=== PATIENT | female | born 1970 | race Caucasian/White ===

== ENCOUNTER 2017-09-08 15:50 | Emergency (ER) | payer OTHER ==
[~2017-09-08] VITALS: Ht 165.1 cm; Wt 69.7 kg
[~2017-09-08 15:50] MED LIST: CITA40TA4 PO; IBUP-1428 PO; TIZA4CAP PO
[2017-09-08 16:12] VITALS: Ht 165.1 cm; Wt 69.7 kg
--- NOTE | 2017-09-08 16:38 | DIAGNOSTIC IMAGING REPORT ---
L FINGER(S) MIN 2 VIEWS ROUTINE CLINICAL HISTORY: L 3rd digit dog bite, distal, pain and discoloration trauma. Pain. COMPARISON: None. DISCUSSION: The bones and joint spaces appear intact. There is no evidence of fracture, dislocation or bony disease. There is no evidence for soft tissue swelling. IMPRESSION: Negative study. The above report was generated using voice recognition software. It may contain grammatical, syntax or spelling errors. Electronically signed by: Erasmo Majano M.D. 09/08/2017 4:37 PM Dictated Date/Time: 09/08/2017 4:36 PM
[2017-09-08] MEDS ORDERED: DOXY-300 PO (16:48)
[2017-09-08] MEDS ORDERED: METR500T PO (16:48)
--- NOTE | 2017-09-08 16:49 | EMERGENCY ROOM VISIT NOTE ---
ED Visit Note First contact with patient: 16:14 Chief Complaint: "Dog Bite" History of Present Illness: This patient is a 46 year old female who presents to the Emergency Department via private vehicle for evaluation of their L 3rd digit dog bite puncture wound. 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 They report a moderate amount of bleeding initially. They deny any numbness or tingling into the distal extremity. They report no decreased range of motion of the affected digit. They have tried ibuprofen for the pain with relief of their symptoms. Patient rates her current discomfort as a 4/10. Patient's Tetanus status is believed to be currently up-to-date. Dog's rabies series are believed to be up to date. Medications: as noted below Allergies: Penicillins PMH: No pertinent SHx: Pt. lives and works locally ROS: All pertinent positive and negative review of systems are appropriately documented in the History of Present Illness. Physical Exam: VITAL SIGNS - Vital signs and nursing notes were reviewed. Stable. GENERAL -46-year-old female appearing her stated age who is in no acute distress. Communicates well with provider and answers questions appropriately. SKIN - There is a small punctate wound noted on the finger pad of the distal L third digit. The edges do not gate apart with traction. No foreign bodies appreciated. Upon further examination there are no deep structures including vessel, tendon, or bony structures appreciated. There is no active bleeding noted. Minimal edema/erythema of this region. No evidence of infection at this time. Good capillary refill distal to the puncture wound. MUSCULOSKELETAL - Puncture wound as described above. +5/5 strength appreciated of the affected digit. Full range of motion of the affected digit. NEUROLOGIC - Spinothalamic tract was found to be intact with ability to discriminate sharp versus dull sensation. No sensory defects of the dorsal column were appreciated utilizing light touch for evaluation. VASCULAR - Capillary refill was brisk. IMAGING: L FINGER(S) MIN 2 VIEWS ROUTINE CLINICAL HISTORY: L 3rd digit dog bite, distal, pain and discoloration trauma. Pain. COMPARISON: None. DISCUSSION: The bones and joint spaces appear intact. There is no evidence of fracture, dislocation or bony disease. There is no evidence for soft tissue swelling. IMPRESSION: Negative study. The above report was generated using voice recognition software. It may contain grammatical, syntax or spelling errors. Electronically signed by: Erasmo Majano M.D. 09/08/2017 4:37 PM Dictated Date/Time: 09/08/2017 4:36 PM ED Course: Patient was seen and evaluated by myself. Risks and benefits of performing primary wound closure versus no repair were discussed with the patient who verbalizes understanding. Verbal consent was obtained prior to performing the procedure. The wound was copiously irrigated with normal saline and Betadine. Patient tolerated the procedure well. No complications were met. The wound was cleansed and dressed with a Bacitracin dressing. She has an allergy to penicillin therefore will be given doxycycline and Flagyl. She is to follow with the approve Worker's Compensation individual. She was informed upon the risk of infection. Patient educated on worrisome symptoms for return visit to the Emergency Department. Patient discharged to home in good condition. In the evaluation and treatment of this patient, the following differential diagnoses were considered: Finger Fracture, Finger Dislocation, Finger Sprain, Finger Contusion, [place] Finger, or Mallet Finger. Problem List Medical Problems: (1) Otitis media Status: Resolved Current/Historical Medications Scheduled Citalopram (Citalopram Hydrobromide), 40 MG PO QAM Doxycycline (Monohydrate) (Doxycycline), 100 MG PO BID Ibuprofen (Motrin), 800 MG PO TID Metronidazole (Flagyl), 500 MG PO TID Scheduled PRN Tizanidine (Zanaflex), 4 MG PO BID PRN for Muscle Spasms Allergies Coded Allergies: Penicillins (Verified Allergy, Unknown, 09/08/17) Vital Signs Date Time Temp Pulse Resp B/P (MAP) Pulse Ox O2 Delivery O2 Flow Rate FiO2 09/08/17 17:01 36.4 60 18 122/85 98 09/08/17 16:12 36.4 60 18 122/85 98 Room Air Departure Information Impression Primary Impression: Bite by animal Dispostion Home / Self-Care Condition GOOD Prescriptions Metronidazole (FLAGYL) 500 Mg Tab 500 MG PO TID for 10 Days, #30 TAB Prov: Artur Lopez PA-C 09/08/17 Doxycycline (Monohydrate) (Doxycycline) 100 Mg Cap 100 MG PO BID for 10 Days, #20 TABS Prov: Artur Lopez PA-C 09/08/17 Referrals No Doctor, Assigned (PCP) Patient Instructions [facility] Additional Instructions Discharge Instructions: You were seen in the emergency department for a dog bite to your finger. X-ray shows no fracture or retained piece of tooth. We do recommend beginning antibiotic to prevent infection. (Doxycycline and Flagyl) You have been prescribed Doxycycline to be taken as prescribed. 1 tablet every 12 hours. this is an antibiotic. All antibiotics have the potential to cause diarrhea. Stop this medication and contact a medical provider if you were to develop any significant adverse side effects including: wheezing, shortness of breath, passing out, vomiting, or a diffuse rash. Always take antibiotics as directed and COMPLETE the ENTIRE course regardless of the improvement of your symptoms. Protect yourself with sunscreen while on this antibiotic as it increases your skin's sensitivity to the light and cause bad sunburns. In addition, you should be sure to take this pill after eating. Make sure the pill is completely swallowed as this medication can cause irritation to the lining of the esophagus. Do NOT drink milk or eat anything with large amounts of Calcium in them 1 hour prior to taking this medication as this will decrease the effectiveness of the medication. The other is Flagyl. 1 tablet every 8 hours. Please do not drink alcohol with this as it will make you very ill. Proper wound care is essential for adequate wound healing and infection prevention. You can shower and clean the wound with soap and water. Do not scour over the wound, pat dry with a towel. Look for signs of infection of the wound including: increased pain, swelling, foul discharge, streaking, or increased temperature. If any of these are noticed you should return to the Emergency Department for further assessment and treatment. As with any laceration you may have received nerve damage to the surrounding tissues. This damage may or may not be permanent. You should keep the area covered with sunscreen for the first 6 months to 1 year when at risk for exposure to help minimize scarring. You can also use scar reducing creams or Vitamin E oil to help minimize scarring. For pain control, you can use the following [id number] medicines (if >12 yo): - Regular strength (325mg/tab) Tylenol (acetaminophen) 2 tabs every 4-6 hours as needed. Do not exceed 12 tablets in a 24 hour period. Avoid taking more than 3 grams (3000 mg) of Tylenol per day. This includes any other sources of acetaminophen you may take on a regular basis. - Regular strength (200 mg/tab) Advil (ibuprofen) 1-2 tabs every 4-6 hours as needed. Do not exceed a dose of 3200 mg per day. Return to the emergency department if your symptoms worsen despite treatment course outlined above.
[2017-09-08 17:01] VITALS: BP 122/85; PULSE 60; TEMP 36.4; O2SAT 98
== END 2017-09-08 17:02 | disposition home or self-care (01) ==
LOC: C.EDB 15:52 → C.EDD 17:02
DX: S61.253A Open bite of left middle finger without damage to nail, initial encounter (principal); W54.0XXA Bitten by dog, initial encounter; Y93.K3 Activity, grooming and shearing an animal; Y99.0 Civilian activity done for income or pay; Z86.69 Personal history of other diseases of the nervous system and sense organs; Z88.0 Allergy status to penicillin

== ENCOUNTER 2019-07-25 16:38 | Inpatient (IN) ==
[2019-07-25 17:05] LABS: Basophils # (auto) 0.03 K/uL (0-0.2); Basophils % (auto) 0.4 %; Eosinophils # (auto) 0.02 K/uL (0-0.5); Eosinophils % (auto) 0.3 %; Hematocrit (blood only) 41.3 % (37-47); Hemoglobin 14.5 g/dL (12.0-16.0); Immature Granulocytes # (auto) 0.01 K/uL (0.00-0.02); Immature Granulocytes % (auto) 0.1 %; Lymphocytes # (auto) 3.57 K/uL (1.2-3.4); Lymphocytes % (auto) 44.7 %; Mean Corpuscular Hemoglobin 32.2 pg (25-34); Mean Corpuscular Hgb Conc 35.1 g/dL (32-36); Mean Corpuscular Volume 91.6 fL (80-100); Mean Platelet Volume 9.8 fL (7.4-10.4); Monocytes # (auto) 0.48 K/uL (0.11-0.59); Neutrophils # (auto) 3.87 K/uL (1.4-6.5); Neutrophils % (auto) 48.5 %; Platelet Count 263 K/uL (130-400); RDW Coefficient of Variation 11.9 % (11.5-14.5); RDW Standard Deviation 40.2 fL (36.4-46.3); Red Blood Count 4.51 M/uL (4.2-5.4); White Blood Count 7.98 K/uL (4.8-10.8)
[2019-07-25 17:23] LABS: Alanine Aminotransferase 17 U/L (12-78); Albumin Level 3.8 gm/dl (3.4-5.0); Aspartate Aminotransferase 16 U/L (15-37); BUN Creatinine Ratio 17.8 (10-20); Blood Urea Nitrogen 15 mg/dl (7-18); Calcium 9.4 mg/dl (8.5-10.1); Carbon Dioxide 27 mmol/L (21-32); Chloride 105 mmol/L (98-107); Est GFR (African American) 92.6; Est GFR (Non-African American) 79.9; Glucose 102 mg/dl (70-99); Lipase 115 U/L (73-393); Potassium 3.8 mmol/L (3.5-5.1); Sodium 137 mmol/L (136-145)
[2019-07-25 17:28] LABS: Alkaline Phosphatase 94 U/L (45-117); Bilirubin,Total 0.4 mg/dl (0.2-1); Globulin 3.7 gm/dl (2.5-4.0); Total Protein 7.5 gm/dl (6.4-8.2); Troponin I < 0.015 ng/ml (0-0.045)
--- NOTE | 2019-07-25 17:35 | XRay Report ---
XR chest 1V portable HISTORY: 48 years-old Female Chest Pain acute atypical chest pain COMPARISON: Chest radiograph 08/06/2014 TECHNIQUE: Portable AP view of the chest FINDINGS: Cardiomediastinal and hilar silhouettes are within normal limits. No pneumothorax, pleural effusion, focal airspace consolidation or overt pulmonary edema. Bones of the chest appear grossly intact. 3 mm ossification projects superior to the right glenoid. IMPRESSION: No acute process. ACT 112: Negative or not required by law. The above report was generated using voice recognition software. It may contain grammatical, syntax o r spelling errors. Electronically signed by: Niall Malloy M.D. 07/25/2019 5:34 PM
[2019-07-25 17:42] LABS: D Dimer < 190 ug/L FEU (0-500)
--- NOTE | 2019-07-25 18:17 | Emergency Department Note ---
History of Present Illness General Chief complaint: Chest Pain Stated complaint: CHEST PAIN Time Seen by Provider: 07/25/19 17:04 History of Present Illness Maximum Pain Intensity: 3 Patient is a 48-year-old female with past medical history significant for anxiety who presents the emergency department for evaluation of chest pain. She has had symptoms x2 days. She states that she has been nauseous for 2 weeks. Thursday, 2 days ago she developed discomfort in her left upper chest. She uses multiple different words to describe it including sharp, dull and pressure. Yesterday the pain persisted. She also developed palpitations. Chest pain worsened yesterday, she states that at its worst she would have rated it a 7/10 yesterday. Currently she rates it a 3/10 and describes it as a pressure like "something is sitting on my chest." She did take ibuprofen yesterday when she h ad a headache. She also notes feeling a little bit short of breath with exertion sweaty, and having increased pain with exertion. She was seen at the [facility] office today where the provider did an EKG and referred her to the emergency department. Patient takes Paxil for anxiety. She is a lifelong smoker, smoking half a pack a day for 32 years. She denies a history of hypertension or heart disease, she had a prior cardiac work-up that was felt to be musculoskeletal. She has been told that she has high cholesterol in the past. Her mother had an WA at age 49. She denies any headache or near syncope. No abdominal pain, nausea or vomiting. She is postmenopausal times several years. Home Medications Home Medications Medication Instructions Recorded Confirmed Type [id number]-[id number] 1 tab PO DAILY 07/25/19 07/25/19 History [Women's One Daily] paroxetine HCl 37.5 mg PO DAILY 07/25/19 07/25/19 History Allergies Allergy/AdvReac Type Severity Reaction Status Date / Time Penicillins Allergy Unknown Unknown Verified 07/25/19 18:27 prednisone AdvReac Unknown Sleepiness Verified 07/25/19 18:27 Past Med/Surg History Medical History Anxiety (Chronic) Cervical radiculitis (Resolved) Hyperlipidemia (Chronic) Surgical History No pertinent past surgical history Social History Preferred Language: [place] Feels Safe at Home: Yes Smoking Status: Current every day smoker Review of Systems A total of 10 systems reviewed and were otherwise negative Physical Exam Vital Signs Vital Signs - 24 hr 07/25/19 16:40 07/25/19 16:52 07/25/19 16:56 Temperature 36.9 C Temperature Source Oral Pulse Rate 70 68 63 Respiratory Rate 18 12 11 L Respiratory Effort / Characteristics Non-Labored Respiratory Depth Normal Blood Pressure 132/84 126/82 Blood Pressure Mean 100 95 Pulse Oximetry 98 97 Oxygen Delivery Method Room Air Room Air Sepsis Recent Fever Within 48 Hours No Sepsis Action Taken by Nursing No Action Required 07/25/19 17:00 07/25/19 17:01 07/25/19 17:30 Temperature Temperature Source Pulse Rate 64 63 61 Respiratory Rate 13 18 18 Respiratory Effort / Characteristics Respiratory Depth Blood Pressure 125/74 111/71 Blood Pressure Mean 87 75 Pulse Oximetry Oxygen Delivery Method Sepsis Recent Fever Within 48 Hours Sepsis Action Taken by Nursing 07/25/19 19:18 Temperature Temperature Source Pulse Rate 58 L Respiratory Rate Respiratory Effort / Characteristics Respiratory Depth Blood Pressure 131/80 Blood Pressure Mean 97 Pulse Oximetry Oxygen Delivery Method Sepsis Recent Fever Within 48 Hours Sepsis Action Taken by Nursing CONSTITUTIONAL: Patient is a well-appearing 48-year-old female who is awake and alert and in no acute distress. EYES: Pupils equal, round, reactive to light and accommodation. EOMs intact without nystagmus. Sclera are anicteric. ENT: Tympanic membranes intact, with normal landmarks. External canals are clear. Oral and nasopharynx are clear. Mucous membranes are moist, no lesions, tongue and gums appear normal. NECK: No bruits auscultated. Supple without lymphadenopathy. No thyromegaly. No meningeal signs. Full active range of motion without discomfort. CARDIOVASCULAR: Regular rate and rhythm, with normal S1 and S2, no murmur or gallop or rub is heard. No carotid bruits auscultated. No JVD. Peripheral pulses easily palpable. RESPIRATORY: Breath sounds equal and clear to auscultation without wheezes, rales, or rhonchi heard. Full and equal chest expansion without accessory muscle use or retractions. There is no reproducible chest discomfort to palpation over the sternum or the costochondral area. ABDOMEN: Bowel sounds. Abdomen is soft, nontender nondistended. No guarding or rebound. INTEGUMENTARY: No lesions or rash, normal skin turgor. LYMPH: No lymphadenopathy. Course Course The patient was seen and assessed as above. Old records were reviewed. She presents to the emergency department for evaluation of waxing and waning chest discomfort x2 days. She has never been pain-free. She was seen at the [facility] office earlier today and referred to the ED for further work-up. She was offered but declined medication for discomfort. IV lock was initiated and laboratory studies were collected. EKG was performed and was as noted below with no evidence for acute ischemic changes. CBC with differential, CMP, lipase, troponin, d-dimer and TSH were obtained. Chest x-ray was performed. Laboratory studies noted a normal white count at 7900. No left shift or bandemia. No anemia. Electrolytes are within normal limits. Renal functions are normal. Transaminases are not elevated. TSH is indicative of a euthyroid state. Troponin is negative x1, d-dimer is within normal limits. Given normal d-dimer and lack of PE risk factors, further work-up for PE was not pursued. Laboratory and diagnostic imaging studies were discussed with the patient and re viewed with attending physician, Dr. Pickett. The patient has a HEART score of 4, moderate risk. Given this it was felt that she would benefit from admission/observation for further cardiac work-up. This was discussed with the patient and she was agreeable. [facility] Patient was reviewed with Dr. Rodriegz. Medical Decision Making Differential Diagnosis Differential diagnosis includes acute myocardial infarction, acute coronary syndrome, myocarditis, pericarditis, pericardial effusions /tamponade, pulmonary embolism, pneumonia, pneumothorax, cardiomyopathy, congestive heart failure, anemia, COPD/asthma exacerbation, musculoskeletal, anxiety, costochondritis, among others. Medical Records Attestation: I reviewed the patient's medical records. Home Medications Current Medication List: was personally reviewed by me Laboratory Data Attestation: I reviewed the patient's lab results. Result diagrams: 07/25/19 16:55 07/25/19 16:55 Lab Results 07/25/19 07/25/19 07/25/19 Range/Units 16:55 16:55 16:55 WBC 7.98 (4.8-10.8) K/uL RBC 4.51 (4.2-5.4) M/uL Hgb 14.5 (12.0-16.0) g/dL Hct 41.3 (37-47) % MCV 91.6 (80-100) fL MCH 32.2 (25-34) pg MCHC 35.1 (32-36) g/dL RDW Std Deviation 40.2 (36.4-46.3) fL RDW Coeff of [place] 11.9 (11.5-14.5) % Plt Count 263 (130-400) K/uL MPV 9.8 (7.4-10.4) fL Immature Gran % (Auto) 0.1 % Neut % (Auto) 48.5 % Lymph % (Auto) 44.7 % [place] % (Auto) 6.0 % Eos % (Auto) 0.3 % Baso % (Auto) 0.4 % Immature Gran # (Auto) 0.01 (0.00-0.02) K/uL Neut # (Auto) 3.87 (1.4-6.5) K/uL Lymph # (Auto) 3.57 H (1.2-3.4) K/uL [place] # (Auto) 0.48 (0.11-0.59) K/uL Eos # (Auto) 0.02 (0-0.5) K/uL Baso # (Auto) 0.03 (0-0.2) K/uL D-Dimer < 190 (0-500) ug/L FEU Sodium 137 (136-145) mmol/L Potassium 3.8 (3.5-5.1) mmol/L Chloride 105 (98-107) mmol/L Carbon Dioxide 27 (21-32) mmol/L Anion Gap 6.0 (3-11) BUN 15 (7-18) mg/dl Creatinine 0.85 (0.6-1.2) mg/dl Est Cr Clr Drug Dosing Not Reportable Est GFR ( Amer) 92.6 Est GFR (Non-Af Amer) 79.9 BUN/Creatinine Ratio 17.8 (10-20) Glucose 102 H (70-99) mg/dl Calcium 9.4 (8.5-10.1) mg/dl Total Bilirubin 0.4 (0.2-1) mg/dl AST 16 (15-37) U/L ALT 17 (12-78) U/L Alkaline Phosphatase 94 (45-117) U/L Troponin I < 0.015 (0-0.045) ng/ml Total Protein 7.5 (6.4-8.2) gm/dl Albumin 3.8 (3.4-5.0) gm/dl Globulin 3.7 (2.5-4.0) gm/dl Albumin/Globulin Ratio 1.0 (0.9-2) Lipase 115 (73-393) U/L TSH (0.300-4.500) uIu/ml 07/25/19 Range/Units 16:55 WBC (4.8-10.8) K/uL RBC (4.2-5.4) M/uL Hgb (12.0-16.0) g/dL Hct (37-47) % MCV (80-100) fL MCH (25-34) pg MCHC (32-36) g/dL RDW Std Deviation (36.4-46.3) fL RDW Coeff of [place] (11.5-14.5) % Plt Count (130-400) K/uL MPV (7.4-10.4) fL Immature Gran % (Auto) % Neut % (Auto) % Lymph % (Auto) % [place] % (Auto) % Eos % (Auto) % Baso % (Auto) % Immature Gran # (Auto) (0.00-0.02) K/uL Neut # (Auto) (1.4-6.5) K/uL Lymph # (Auto) (1.2-3.4) K/uL [place] # (Auto) (0.11-0.59) K/uL Eos # (Auto) (0-0.5) K/uL Baso # (Auto) (0-0.2) K/uL D-Dimer (0-500) ug/L FEU Sodium (136-145) mmol/L Potassium (3.5-5.1) mmol/L Chloride (98-107) mmol/L Carbon Dioxide (21-32) mmol/L Anion Gap (3-11) BUN (7-18) mg/dl Creatinine (0.6-1.2) mg/dl Est Cr Clr Drug Dosing Est GFR ( Amer) Est GFR (Non-Af Amer) BUN/Creatinine Ratio (10-20) Glucose (70-99) mg/dl Calcium (8.5-10.1) mg/dl Total Bilirubin (0.2-1) mg/dl AST (15-37) U/L ALT (12-78) U/L Alkaline Phosphatase (45-117) U/L Troponin I (0-0.045) ng/ml Total Protein (6.4-8.2) gm/dl Albumin (3.4-5.0) gm/dl Globulin (2.5-4.0) gm/dl Albumin/Globulin Ratio (0.9-2) Lipase (73-393) U/L TSH 1.640 (0.300-4.500) uIu/ml Imaging Data Attestation: I personally reviewed and interpreted this imaging study as follows: Radiologist's Impression: XR chest 1V portable HISTORY: 48 years-old Female Chest Pain acute atypical chest pain COMPARISON: Chest radiograph 08/06/2014 TECHNIQUE: Portable AP view of the chest FINDINGS: Cardiomediastinal and hilar silhouettes are within normal limits. No pneumothorax, pleural effusion, focal airspace consolidation or overt pulmonary edema. Bones of the chest appear grossly intact. 3 mm ossification projects superior to the right glenoid. IMPRESSION: No acute process. ECG Data Attestation: I personally reviewed and interpreted this ECG as follows: Indication: + chest pain and + palpitations Rate (beats per minute): 64 Rhythm: + normal sinus ECG Constantine: + Normal ECG ST segments: + Normal ST segments Comparison ECG Date: from (2014) Change: the following changes noted (ST and T wave abnormality is resolved.) Blood Pressure Blood Pressure Findings: Normal blood pressure Blood Pressure Disposition: did not require urgent referral MDM Narrative See ED Course. Impression & Plan Precordial chest pain, Palpitations Discharge Plan Visit Data *Final* Discharge Date/Time: 07/25/19 20:40 Chief Complaint: Chest Pain Stated Complaint: CHEST PAIN ED Provider: Selvin Pickett ED Midlevel Provider: Fernandez Garcia Discharge Problem: Precordial chest pain, Palpitations Patient Disposition: Admitted As Inpatient Discharge Instructions Interventions: ED Discharge Assessment Last Done: 07/25/19 20:40 Risk - HEART Scoring HEART Score for Major Cardiac Events History: Moderately Suspicious EKG: Normal Age: 45-64 Years of Age Risk Factors: >2 Risk Factors Initial Troponin: Normal Limit Total Points: 4 Risk Level: Moderate Risk for Major Adverse Cardiac Event HEART Score Interpretation: Score interpretation (as per derivation study): HEART Adverse Cardiac Score Event Risk Management 0-3 0.9-1.7% In the HEART Score study, these patients were discharged. 4-6 12-16.6% In the HEART Score study, these patients were admitted to the hospital. 7-10 50-65% In the HEART Score study, these patients were candidates for early invasive measurements. Original Source: 1. Darshan AJ, John BE, Eh NIRAV. Chest pain in the emergency room: value of the HEART score. Neth Heart J. 2008; 16(6):191-6.
[2019-07-25] MEDS ORDERED: ACETAMINOPHEN 325 MG TAB PO PRN (21:08)
[2019-07-25] MEDS ORDERED: ONDANSETRON INJ 2 MG/ML 2 ML VIAL IV PRN (21:08)
[2019-07-25] MEDS ORDERED: NITROGLYCERIN SL 0.4 MG/TAB TAB SL PRN (21:08)
--- NOTE | 2019-07-25 22:59 | History and Physical Report ---
DATE OF ADMISSION: 07/25/2019 CHIEF COMPLAINT: Chest pain. HISTORY OF PRESENT ILLNESS: This is a 48-year-old female with past medical history significant for allergic rhinitis, history of tobacco use disorder, history of depression, history of condyloma acuminatum, who lives with his son. Smokes half pack a day for last about 32 years. Presents with chest pain. The patient states since last weekend she noticed retrosternal chest pain, no radiation. Yesterday, it was 7/10 in severity, dull aching pain, but today it was about 3/10 in severity. She says the pain is more when she is anxious or when she is exerting and relieves with rest. She moved to a new house in December, there are a lot of stairs and climbing the stairs is making her short of breath. Also she has chronic dizziness. She was a little nauseous earlier today. She states she easily sweats with the heat. Denies any fever, chills. No cough, no headache. Her vision is not great and she follows with eye doctor. No earaches, no runny nose, no sore throat. Appetite is okay. No dysphagia, no odynophagia. No diarrhea, no constipation, no blood in stools or black stools. No burning micturition, no hematuria. No swelling in the legs, no rash, no easy bruising or easy bleeding. Sleeps okay. ALLERGIES: PENICILLINS, PREDNISONE. PAST MEDICAL HISTORY: As mentioned above. PAST SURGICAL HISTORY: Injection of the cervical spine, ligation of oviducts, Pap screen, tonsillectomy, vaginal delivery. MEDICATIONS: The patient is on multivitamins, paroxetine 37.5 mg p.o. daily, Benadryl p.r.n. FAMILY HISTORY: Significant for mother has alcoholism, smoking disorder, smoking and she had KS at the age of 49 and bypass surgery. Mother also has hypertension, anxiety. Father has anxiety. Sister has thyroid disorder. Brother has allergies. SOCIAL HISTORY: Lives with her son. Smokes half pack a day for last 30+ years. Alcohol very rarely. No drug use. REVIEW OF SYSTEMS: As per HPI. Rest of the review of systems negative. PHYSICAL EXAMINATION: GENERAL: The patient is of moderate build, not in acute distress. VITAL SIGNS: Temperature 36.9, pulse 50, respiratory rate 18, blood pressure 131/80, oxygen 97% on room air. HEENT: No pallor, no icterus. Pupils equal, round, and reactive to light. NECK: No JVD, no neck masses, no carotid bruits. CARDIOVASCULAR: S1, S2 heard, regular rate and rhythm, no murmur, no gallop. RESPIRATORY SYSTEM: Normal AP diameter. No accessory muscle use. No wheezing, no crackles. ABDOMEN: Soft, bowel sounds present. Nontender. No distention. CENTRAL NERVOUS SYSTEM: Cranial nerves II-XII grossly intact. Nonfocal. EXTREMITIES: No edema, no erythema. LABORATORY DATA: WBC 7.9, hemoglobin 14.5, hematocrit 41.3, platelets 263. D-dimer less than 190. Sodium 137, potassium 3.8, chloride 105, bicarbonate 27, BUN 15, creatinine 0.8, serum glucose 102, calcium 9.4, total bilirubin 0.4, AST 16, ALT 17, alkaline phosphatase 94. Troponin I less than 0.015. Lipase 115. TSH 1.6. IMAGING DATA: Chest x-ray, no acute process. EKG: Normal sinus rhythm with rate of 64, no acute ST changes seen. ASSESSMENT AND PLAN: This is a 48-year-old female who presents with chest pain. 1. Chest pain, rule out acute coronary syndrome. Initial workup is negative. Risk factor of age, smoking history, and family history. We will observe in tele floor. Serial cardiac enzymes, echocardiogram. N.p.o. after midnight. Consult cardiology for possible stress test in the a.m. if the further workup is negative. 2. History of depression. Continue paroxetine. 3. Tobacco use disorder. Needs counseling. 4. Deep venous thrombosis prophylaxis, sequential compression devices. 5. Disposition: Observation in tele floor. Expect to discharge home and follow with family doctor. Level 1 full code. MTDD
[2019-07-26 05:32] LABS: Basophils # (auto) 0.04 K/uL (0-0.2); Basophils % (auto) 0.4 %; Eosinophils # (auto) 0.09 K/uL (0-0.5); Hematocrit (blood only) 39.6 % (37-47); Hemoglobin 14.4 g/dL (12.0-16.0); Immature Granulocytes # (auto) 0.01 K/uL (0.00-0.02); Immature Granulocytes % (auto) 0.1 %; Lymphocytes % (auto) 34.4 %; Mean Corpuscular Hemoglobin 32.8 pg (25-34); Mean Corpuscular Hgb Conc 36.4 g/dL (32-36); Mean Corpuscular Volume 90.2 fL (80-100); Mean Platelet Volume 9.4 fL (7.4-10.4); Monocytes # (auto) 0.56 K/uL (0.11-0.59); Monocytes % (auto) 6.2 %; Neutrophils # (auto) 5.21 K/uL (1.4-6.5); Neutrophils % (auto) 57.9 %; Platelet Count 258 K/uL (130-400); RDW Standard Deviation 39.7 fL (36.4-46.3); Red Blood Count 4.39 M/uL (4.2-5.4); White Blood Count 9.01 K/uL (4.8-10.8)
[2019-07-26 06:07] LABS: BUN Creatinine Ratio 22.9 (10-20); Blood Urea Nitrogen 19 mg/dl (7-18); Calcium 9.1 mg/dl (8.5-10.1); Carbon Dioxide 29 mmol/L (21-32); Chloride 109 mmol/L (98-107); Creatinine Clr Calc Pharmacy 72.1 ml/min; Est GFR (African American) 93.9; Glucose 92 mg/dl (70-99); Magnesium 2.2 mg/dl (1.8-2.4); Potassium 4.2 mmol/L (3.5-5.1); Sodium 143 mmol/L (136-145)
[2019-07-26 06:12] LABS: Troponin I < 0.015 ng/ml (0-0.045)
[2019-07-26] MEDS: MULTIVITAMIN TAB PO SCH (08:49)
[2019-07-26] MEDS: ASPIRIN 81 MG ECTAB PO SCH (08:49)
[2019-07-26] MEDS: PARoxetine HCl CONTROLLED REL 12.5 MG TABCR PO SCH (08:49)
--- NOTE | 2019-07-26 10:59 | Electrocardiogram Report ---
Test Reason : Blood Pressure : / mmHG Vent. Rate : 064 BPM Atrial Rate : 064 BPM P-R Int : 132 ms QRS Dur : 084 ms QT Int : 422 ms P-R-T Axes : 032 056 047 degrees QTc Int : 435 ms Normal sinus rhythm Normal ECG When compared with ECG of 06-AUG-2014 11:26, T wave inversion no longer evident in Inferior leads T wave inversion no longer evident in Anterolateral leads Confirmed by Diomedes Pacheco ([id number]) on 07/26/2019 10:59:39 AM Referred By: REFERRED SELF Confirmed By:Diomedes Pacheco
--- NOTE | 2019-07-26 12:37 | Cardiology Consultation ---
Date of Consultation July 26, 2019 Assessment & Plan (1) Precordial chest pain: Resting echo with normal wall motion. Proceed with exercise stress echo. History of Present Illness Attending Physician: Suzette Lewis MD History of Present Illness Carlee Blanchard is a 48 year old female with a past history of smoking who presents with several days of episodic chest pain, no necessarily related to exertion. CP free now. Serial EKGs, serial troponin levels have been normal. Family History: Mother pasted away in her 70s, had MT in her late 40s. Allergies Allergy/AdvReac Type Severity Reaction Status Date / Time Penicillins Allergy Unknown Unknown Verified 07/25/19 18:27 prednisone AdvReac Unknown Sleepiness Verified 07/25/19 18:27 Home Medications Home Medications Medication Instructions Recorded Confirmed Type dshlidjm-ysim-AL-calcium-mins 1 tab PO DAILY 07/25/19 07/25/19 History [Women's One Daily] paroxetine HCl 37.5 mg PO DAILY 07/25/19 07/25/19 History Patient History Medical History Anxiety (Chronic) Cervical radiculitis (Resolved) Hyperlipidemia (Chronic) Surgical History No pertinent past surgical history Social History Preferred Language: Bengali Beliefs That Will Affect Care: None Current Living Situation: Family Other Information That Helps Us Care for You: No Feels Safe at Home: Yes Safety Concerns: Feels Safe At This Time Smoking Status: Current every day smoker Tobacco Type: cigarettes ; Do You Dip or Chew Tobacco: No ; Second Hand Exposure: Yes ; Tobacco Cessation Education Requested by Patient: No Hx Alcohol Use: No Hx Substance Use: No Review of Systems Review of Systems: All systems reviewed & are unremarkable except as noted in HPI & below Physical Exam Physical Exam: Temp Pulse Resp BP Pulse Ox 37.1 C 55 L 20 100/66 95 07/26/19 11:41 07/26/19 11:41 07/26/19 11:41 07/26/19 11:41 07/26/19 11:41 Constitutional: WD/WN, vitals as above Respiratory: normal respiratory effort, lungs clear to auscultation Cardiovascular: RRR, no murmur, no edema Gastrointestinal (Abdomen): normal bowel sounds, soft, nontender, no hepatosplenomegaly Neurologic: PERRL, EOMI, accommodation nl, no face palsy, no dysarthria Results & Data ([facility]) Vital Signs (Past 12 Hours) Vital Signs Temp Pulse Pulse Resp BP Pulse Ox 07/26/19 11:41 37.1 C 55 L 20 100/66 95 07/26/19 08:00 58 L 07/26/19 04:20 36.5 C 55 L 16 100/62 95 Laboratory Results Cardiac Enzymes 07/25/19 07/25/19 07/26/19 Range/Units 16:55 22:37 05:18 AST 16 (15-37) U/L Troponin I < 0.015 < 0.015 < 0.015 (0-0.045) ng/ml 07/26/19 Range/Units 10:35 AST (15-37) U/L Troponin I < 0.015 (0-0.045) ng/ml CBC 07/25/19 07/26/19 Range/Units 16:55 05:18 WBC 7.98 9.01 (4.8-10.8) K/uL RBC 4.51 4.39 (4.2-5.4) M/uL Hgb 14.5 14.4 (12.0-16.0) g/dL Hct 41.3 39.6 (37-47) % Plt Count 263 258 (130-400) K/uL Neut # (Auto) 3.87 5.21 (1.4-6.5) K/uL Lymph # (Auto) 3.57 H 3.10 (1.2-3.4) K/uL Cuming # (Auto) 0.48 0.56 (0.11-0.59) K/uL Eos # (Auto) 0.02 0.09 (0-0.5) K/uL Baso # (Auto) 0.03 0.04 (0-0.2) K/uL Comprehensive Metabolic Panel 07/25/19 07/26/19 Range/Units 16:55 05:18 Sodium 137 143 (136-145) mmol/L Potassium 3.8 4.2 (3.5-5.1) mmol/L Chloride 105 109 H (98-107) mmol/L Carbon Dioxide 27 29 (21-32) mmol/L BUN 15 19 H (7-18) mg/dl Creatinine 0.85 0.84 (0.6-1.2) mg/dl Glucose 102 H 92 (70-99) mg/dl Calcium 9.4 9.1 (8.5-10.1) mg/dl AST 16 (15-37) U/L ALT 17 (12-78) U/L Alkaline Phosphatase 94 (45-117) U/L Total Protein 7.5 (6.4-8.2) gm/dl Albumin 3.8 (3.4-5.0) gm/dl Intake and Output 07/25/19 07/26/19 07/26/19 22:59 06:59 14:59 Intake Total 200 / 200 Balance 200 / 200 Intake: Oral 200 / 200 Other: Weight 62.3 kg
[2019-07-26 13:14] LABS: Chol HDL Ratio 7; Cholesterol 275 mg/dl (0-200); HDL Cholesterol 40 mg/dl; LDL Cholesterol Calculated 194 mg/dl; Triglycerides 205 mg/dl (0-150); VLDL Cholesterol 41 mg/dl
--- NOTE | 2019-07-26 15:01 | Electrocardiogram Report ---
Test Reason : Blood Pressure : / mmHG Vent. Rate : 054 BPM Atrial Rate : 054 BPM P-R Int : 140 ms QRS Dur : 076 ms QT Int : 450 ms P-R-T Axes : 051 069 076 degrees QTc Int : 426 ms Sinus bradycardia Otherwise normal ECG When compared with ECG of 25-JUL-2019 16:46, (unconfirmed) No significant change was found Confirmed by Diomedes Pacheco ([id number]) on 07/26/2019 3:01:12 PM Referred By: REFERRED SELF Confirmed By:Diomedes Pacheco
--- NOTE | 2019-07-26 15:25 | Communication Note ---
Date of Service: July 26, 2019 Patient underwent exercise stress echocardiogram. At a low level of exercise, ischemic EKG changes were observed with inferior lateral T wave inversions, and development of 1 to 1.[address] segment depression. Her presenting symptom of chest discomfort was not reproduced. The test was terminated early in stage II of a Caas protocol due to the ischemic EKG changes. No ventricular arrhythmias were observed. Patient was transferred back to the PCU. We will advance her diet for now, and keep her n.p.o. after midnight for planned cardiac catheterization tomorrow. Due to her baseline sinus bradycardia in the 50 bpm range, will hold off on beta-blade. Continue aspirin plus we will add atorvastatin with noted LDL cholesterol of 194 mg/dL. Holding off on TAMI inhibitor or angiotensin receptor blade due to relative low blood pressure, systolic blood pressure 100 mmHg.
--- NOTE | 2019-07-26 16:16 | Hospitalist Progress Note ---
Date of Service July 26, 2019 Assessment & Plan (1) Precordial chest pain: admitted with substernal chest pain no recurrence of symtpom since admission appreciate input from cardiology exercise stress test today 07/26/19 shows evidence of stress induces ischemia pt has multiple risk factors for CAD -personal hx of smoking , family hx of premature coronary artery disease ( mother had NV at age 40's/ at age 70 due to other medical complications ) pt is scheduled for cardiac cath tomorrow ordered for NPO past midnight TOBACCO ABUSE : counselling provided for smoking cessation , very important to quit -increased health risk for NV /CVA given evidence of possible CAD pt voiced understanding FULL CODE Admission and Anticipated Discharge Date Admission Date: July 25, 2019 Subjective no complain of chest pain or SOB at present exercise stress test showed EKG changes suggestive of ischemia plan for cardiac cath in AM pt appears to be comfortable offers no new complain no cough or fever or chills denies of any feeling of chest heaviness , LEE or orthopnea Review of Systems Review of Systems: All systems reviewed & are unremarkable except as noted in HPI & below Cardiovascular: + chest pain with activity; no chest pain, no chest pain at rest, no dyspnea, no dyspnea on exertion, no orthopnea, no palpitations, no lightheadedness and no edema Physical Exam Physical Exam: GENERAL: No sign of distress, HEENT: Sclera nonicteric, pink-purple bilateral equal reactive to light extraocular muscle intact Normal oral mucosa, neck: No JVD, no thyromegaly, trachea midline Lungs: Clear to auscultate, no wheeze or rales Cardiovascular: Regular S1 and S2, no murmur or gallop, no JVD, no lower extremity edema Abdomen: Soft, nontender, bowel sounds active, no hepatosplenomegaly Extremities: No rash or deformity, normal joint, Neuro: No focal neurological deficit, no dysarthria, no facial droop Psych: Alert awake oriented x3: Euthymic Skin: No rash LYMPH NODES: No cervical lymphadenopathy Results & Data ([facility]) Vital Signs (Past 12 Hours) Vital Signs Temp Pulse Pulse Resp BP Pulse Ox 07/26/19 15:30 71 07/26/19 11:41 37.1 C 55 L 20 100/66 95 07/26/19 08:00 58 L 07/26/19 04:20 36.5 C 55 L 16 100/62 95
[2019-07-26] MEDS: ATORVASTATIN 40 MG TAB PO SCH (17:33)
[2019-07-26] MEDS: SODIUM CHLORIDE 0.9% 1000ML 1,000 ML IV SCH (21:09)
[2019-07-27 07:00] LABS: Hematocrit (blood only) 41.2 % (37-47); Hemoglobin 14.4 g/dL (12.0-16.0); Mean Corpuscular Hemoglobin 32.1 pg (25-34); Mean Corpuscular Volume 91.8 fL (80-100); Mean Platelet Volume 9.3 fL (7.4-10.4); Platelet Count 204 K/uL (130-400); RDW Coefficient of Variation 11.8 % (11.5-14.5); RDW Standard Deviation 39.7 fL (36.4-46.3); Red Blood Count 4.49 M/uL (4.2-5.4); White Blood Count 6.18 K/uL (4.8-10.8)
[2019-07-27 07:30] LABS: Creatinine Clr Calc Pharmacy 73.9 ml/min; Est GFR (African American) 96.7; Est GFR (Non-African American) 83.4; Potassium 4.1 mmol/L (3.5-5.1)
[2019-07-27] MEDS: MULTIVITAMIN TAB PO SCH (08:03)
[2019-07-27] MEDS: ASPIRIN 81 MG ECTAB PO SCH (08:03)
[2019-07-27] MEDS: PARoxetine HCl CONTROLLED REL 12.5 MG TABCR PO SCH (08:03)
[2019-07-27] MEDS ORDERED: MIDAZOLAM HCL 1 MG/ML 2ML VIAL ONE (09:13)
[2019-07-27] MEDS ORDERED: HEPARIN (PORCINE) 1000 UNIT/ML 10 ML (CATH LAB USE ONLY) ONE (09:13)
[2019-07-27] MEDS ORDERED: NiCARDipine HCL INJ 2.5 MG/ML 10 ML AMP ONE (09:13)
[2019-07-27] MEDS ORDERED: fentaNYL citrate 100 MCG/2 ML VIAL ONE (09:13)
--- NOTE | 2019-07-27 09:31 | Pre Anesthesia Assessment ---
Date of Service July 27, 2019 Pre Sedation Assessment Vital Signs Temp Pulse Pulse Pulse Resp BP Pulse Ox 07/27/19 08:50 64 18 94/57 L 95 07/27/19 07:32 37.3 C 60 16 114/70 95 07/27/19 03:48 37 C 67 16 105/67 93 07/27/19 00:00 69 07/26/19 23:06 37 C 63 16 106/69 94 07/26/19 19:13 37.2 C 65 17 110/67 94 07/26/19 16:16 36.9 C 65 19 106/66 97 07/26/19 15:30 71 07/26/19 11:41 37.1 C 55 L 20 100/66 95 Cardiovascular RRR, no murmur, no edema Respiratory normal respiratory effort, lungs clear to auscultation Pre-Sedation Airway Assessment Smoking Status: Current every day smoker Hx Sleep Apnea: No Short, Thick Neck: No Thyromental Distance: > or= 3.5 Finger Breadths Oral Cavity: + WNL Mallampati Class: II ASA: ASA2 NPO Status Date of Last Intake of Fluids: 07/27/19 Time of Last Intake of Fluids: 06:00 Date of Last Intake of Solid Food: 07/26/19 Time of Last Intake of Solid Foods: 21:00 Procedure Planning Contraindications for Sedation: none Current Medications Reviewed: Yes Notes The planned sedation has been discussed with the patient. Informed Consent was obtained. I have identified the patient, determined the appropriateness of sedation and have assessed the patient immediately prior to the procedure. All medicine(s) and interventions are by my order.
--- NOTE | 2019-07-27 09:45 | Post Anesthesia Assessment ---
Date of Service July 27, 2019 Post Sedation Assessment Vital Signs Temp Pulse Pulse Pulse Resp BP Pulse Ox 07/27/19 08:50 64 18 94/57 L 95 07/27/19 07:32 37.3 C 60 16 114/70 95 07/27/19 03:48 37 C 67 16 105/67 93 07/27/19 00:00 69 07/26/19 23:06 37 C 63 16 106/69 94 07/26/19 19:13 37.2 C 65 17 110/67 94 07/26/19 16:16 36.9 C 65 19 106/66 97 07/26/19 15:30 71 07/26/19 11:41 37.1 C 55 L 20 100/66 95 Recovery Score Activity: Moves 4 extremities Respiration: Deep Breath/Cough Circulation: +/-20% PreAnes Value Consciousness: Fully Awake Oxygen Saturation: > 92% On Room Air Discharge Sedation Level of Care: Phase I Post Sedation Plan On clinical assessment, the patient appears to have tolerated the sedation without complications. Patient is recovering as anticipated. Patient will continue to be monitored by nursing and may be discharged when sedation discharge criteria are met per below protocol. Upon Completions of procedure up to 15 minutes continue every 5 minute vital signs and the P.A.R. score; then discharge to a Phase I or Fast Track to Phase II per the following guidelines: * Discharge Patient to appropriate Phase II area if PAR is 8 or greater or return to pre- procedure baseline. The post - procedure orders will be as directed. * If PAR score is less than 8 or not return to pre-procedure baseline then patient will follow Phase I monitoring till PAR is reached for Phase II. The Phase I may be done in procedure room or may call to secure a Phase I area. * If naloxone or flumazenil are used for reversal, hold in Phase I for continued monitoring from when last reversal dose was given for a minimum of 60 minutes or longer pending the nurse and/or physician discretion of patient condition before discharge to Phase II. Please call the Sedation Physician to re-evaluate and complete post-note for discharge to Phase II area. Do NOT discharge from procedure sedation or Phase 1 until post- sedation evaluation note is complete by procedure /sedation MD Sedation Discharge Instructions to be given to the patient at discharge to home.
--- NOTE | 2019-07-27 10:31 | Cardiac Catheterization ---
Cardiac Cath Procedure Full Procedure Date July 27, 2019 Pre-Procedure Diagnosis Pre-Procedure Diagnosis: Positive Stress Test and Arrhythmia AUC Score AUC Score: 7 Post-Procedure Diagnosis Post-Procedure Diagnosis: Mild CAD and Normal Intracardiac Pressures Procedure(s) Performed Procedure(s) Performed: Coronary Angiography and Left Heart Cath Wallet Assembler Tony Taylor DO Estimated Blood Loss Estimated Blood Loss: 5cc Medication(s) Medication(s): Fentanyl, Heparin, Lidocaine 1%, Nicardipine, Nitroglycerin and Versed Summary of Findings Mild nonobstructive coronary artery disease with 10% proximal and mid LAD plaque. Catheter induced proximal RCA vasospasm. Hemodynamics Rest Ao:: 103/64/80 Final Ao: 104/54/75 LV: 106/-6/3 Recommendations Recommendations: Medical Therapy and/or Counseling Specimens Specimens: None Radiation Exposure (mGy) 543 Contrast (mls) 50 Fluids (cc crystalloids) Fluids (cc crystalloids): 50 Nss Anesthesia Moderate sedation. Start 0955. End 1021. Sedation monitor : [place]isco RN Procedural Complication(s) None Disposition Barking Machine Feeder Holding/Recovery I attest to the content of the Intraoperative Record and any orders documented therein. Any exceptions are noted below. ACC Data: Barking Machine Feeder Cardiac Status Clinical evaluation leading to the procedure CAD Presenation: Positive Stress Test Anginal Classification: CCS II Heart Failure: No Cardiogenic Shock within 24 Hours: No Cardiac Arrest within 24 Hours: No Imaging Studies Past 6 Months: Yes Stress Studies Past 6 Months: Yes Stress Echocardiogram: Yes - Positive and Risk/Extent of Ischemia (Intermediate) Coronary Anatomy Dominant: Right Left Main (% Stenosis): Normal LAD (% Stenosis): Proximal (10%) and Mid (10%) D1 (% Stenosis): Normal Circumflex (% Stenosis): Normal OM1 (% Stenosis): Normal (1mm vessel) OM2 (% Stenosis): Normal L PL1 (% Stenosis): Normal RCA (% Stenosis): Ostial (catheter induced vasospasm without significant stenosis) and Proximal (20% with catheter-induced vasospasm) R PDA (% Stenosis): Normal R PL1 (% Stenosis): Normal Diagnostic Physicians Name: Tony Taylor DO Closure Device Percutaneous Entry Location: Radial Closure Device: Radial Band Recommendations: Medical Therapy and/or Counseling Intraprocedure Events Significant Disection: No Perforation: No
[2019-07-27] MEDS ORDERED: ACETAMINOPHEN 325 MG TAB PO PRN (10:38)
[2019-07-27] MEDS: ATORVASTATIN 40 MG TAB PO SCH (11:04)
[2019-07-27] MEDS: SODIUM CHLORIDE 0.9% 1000ML 1,000 ML IV SCH (11:04)
--- NOTE | 2019-07-27 12:04 | Electrocardiogram Report ---
Test Reason : Blood Pressure : / mmHG Vent. Rate : 065 BPM Atrial Rate : 065 BPM P-R Int : 136 ms QRS Dur : 076 ms QT Int : 402 ms P-R-T Axes : 042 058 064 degrees QTc Int : 418 ms Normal sinus rhythm Normal ECG When compared with ECG of 26-JUL-2019 06:51, No significant change was found Confirmed by Diomedes Pacheco ([id number]) on 07/27/2019 12:04:20 PM Referred By: REFERRED SELF Confirmed By:Diomedes Pacheco
--- NOTE | 2019-07-27 12:33 | Cardiology Progress Note ---
Date of Service July 27, 2019 Assessment & Plan (1) Precordial chest pain: Presenting symptoms were somewhat atypical for angina, however given concerns of abnormal EKG response to low-level exercise, and episode of wide-complex tachycardia together with clinical risk factors of cigarette smoking, significant dyslipidemia, and family history of premature coronary heart disease with her mother having had myocardial infarction at the age of 49, cardiac catheterization was performed revealing only mild luminal irregularities. Risk factor counseling provided to patient. Would recommend discharge on aspirin, and atorvastatin. Baseline heart rate is in the 50 bpm range, and I do not think there is room for beta-blade. (2) Hyperlipidemia: Significant dyslipidemia noted. Total cholesterol 275, triglyceride level 205, LDL 194, HDL 40. Atorvastatin 40 mg started this hospital stay. (3) Palpitations: Patient with history of palpitations. She did have a 13 beat run of wide- complex tachycardia at 5:14 AM on 07/26/2019. She was sleeping during this event, and was asymptomatic. Is difficult to determine if this was ventricular or supraventricular with aberrant conduction. Her ejection fraction is normal with no evidence of cardiomyopathy. I would estimate that her risk of sudden cardiac is low. As noted, baseline bradycardia precludes use of beta-blade. We will plan on 7-day Zio chef teacher as an outpatient for follow-up of arrhythmia with outpatient cardiology follow-up in about a 1 month interval. (4) Cigarette smoker: Smoking cessation advised. Patient states that she quit for 5 months in the past with nicotine gum. Disposition: Stable for discharge from a cardiac perspective after she completes the post cardiac catheterization progression protocol. -Cardiology follow-up and Zio monitor recommended. Subjective Patient seen on the telemetry floor room 221 post cardiac catheterization. Right radial band is in place, and she is progressing through the cardiac catheterization recovery protocol. Results were discussed with Dr. Taylor. The patient was found to have very mild luminal irregularities and no obstructive disease. Telemetry reveals no additional arrhythmias since the run of wide-complex tachycardia noted on 07/26/2019 at 5:14 AM. Review of Systems Review of Systems: All systems reviewed & are unremarkable except as noted in HPI & below Physical Exam Physical Exam: Temp Pulse Resp BP Pulse Ox 36.7 C 78 18 113/69 96 07/27/19 11:23 07/27/19 11:53 07/27/19 11:53 07/27/19 11:53 07/27/19 11:53 Constitutional: WD/WN, vitals as above Respiratory: normal respiratory effort, lungs clear to auscultation Gastrointestinal (Abdomen): normal bowel sounds, soft, nontender, no hepatosplenomegaly Skin: Right radial arm bandage clean dry and intact, no hematoma Neurologic: PERRL, EOMI, accommodation nl, no face palsy, no dysarthria Results & Data Vital Signs (Past 12 Hours) Vital Signs Temp Pulse Pulse Resp BP Pulse Ox 07/27/19 11:53 78 18 113/69 96 07/27/19 11:23 36.7 C 59 L 19 111/65 96 07/27/19 10:53 61 99/65 L 96 07/27/19 10:45 59 L 18 106/64 95 07/27/19 10:38 36.6 C 57 L 20 98/61 L 94 07/27/19 10:30 58 L 18 102/60 95 07/27/19 08:50 64 18 94/57 L 95 07/27/19 07:32 37.3 C 60 16 114/70 95 07/27/19 03:48 37 C 67 16 105/67 93 Laboratory Results Lipids 07/26/19 Range/Units 05:18 Triglycerides 205 H (0-150) mg/dl Cholesterol 275 H (0-200) mg/dl HDL Cholesterol 40 mg/dl Cholesterol/HDL Ratio 7 CBC 07/27/19 Range/Units 06:52 WBC 6.18 (4.8-10.8) K/uL RBC 4.49 (4.2-5.4) M/uL Hgb 14.4 (12.0-16.0) g/dL Hct 41.2 (37-47) % Plt Count 204 (130-400) K/uL Comprehensive Metabolic Panel 07/27/19 Range/Units 06:52 Sodium 139 (136-145) mmol/L Potassium 4.1 (3.5-5.1) mmol/L Chloride 108 H (98-107) mmol/L Carbon Dioxide 28 (21-32) mmol/L BUN 14 (7-18) mg/dl Creatinine 0.82 (0.6-1.2) mg/dl Glucose 110 H (70-99) mg/dl Calcium 9.0 (8.5-10.1) mg/dl Intake and Output 02/11/20 02/12/20 02/12/20 22:59 06:59 14:59 Intake Total 240 / 240 1000 / 1000 Balance 240 / 240 1000 / 1000 Intake: IV 1000 / 1000 Nss 1000ML 1,000 ml @ 80 mls/hr 1000 / 1000 IV .[id number] [facility] Rx#:[id number] Oral 240 / 240 Other: Weight 63 kg
[2019-07-27] MEDS ORDERED: ONDANSETRON INJ 2 MG/ML 2 ML VIAL IV PRN (12:58)
[2019-07-27] MEDS ORDERED: ONDANSETRON INJ 2 MG/ML 2 ML VIAL ONE (13:03)
--- NOTE | 2019-07-27 14:49 | Hospitalist Progress Note ---
Date of Service July 27, 2019 Assessment & Plan (1) Chest pain: D-dimer normal, so pulmonary embolism very unlikely. [place] ruled out. Echo showed mild concentric LVH, normal LVEF, no wall motion abnormalities. Stress echo performed and demonstrated inferior ST depression and T-wave inversi ons at low level of exercise. Cardiac cath showed mild nonocclusive coronary artery disease. Family history of early CAD. Aspirin, statin, smoking cessation recommended. (2) Arrhythmia: 13 beat run of wide-complex tachycardia noted while sleeping- asymptomatic. K & Mg normal. Normal LVEF per echo. No beta blade because of bradycardia. Outpatient ZIO recommended. (3) Hyperlipidemia: Total cholesterol 275, LDL 194, HDL 40, triglycerides 205. Early coronary artery disease noted on cardiac catheterization. Started on atorvastatin. (4) Cigarette smoker: Importance of smoking cessation discussed. Nicotine gum recommended. Follow-up with PCP. (5) DVT prophylaxis: SCDs ordered. Ambulating. (6) Discharge planning issues: Discharge to home. Family Medicine follow-up with Dr. Hawkins. Cardiology follow-up with Dr. Gamble or his colleagues. Admission and Anticipated Discharge Date Admission Date: July 26, 2019 Subjective Recheck for chest pain. Cardiac cath performed today via right radial artery. Procedure went well. Found to have only mild nonocclusive CAD. No palpitations or SOB today. Physical Exam Constitutional: no acute distress Respiratory: no respiratory distress Auscultation: lungs clear to auscultation bilaterally Cardiovascular: Rate/Rhythm: regular rate and regular rhythm Heart Sounds: no gallop, no murmur and no cardiac rub Vessels: no JVD Extremities: no calf tenderness and no edema Gastrointestinal (Abdomen): normal bowel sounds, soft, nontender, no hepatosplenomegaly Skin: no rashes, warm and dry Psychiatric: Orientation: alert and oriented x 3 Results & Data ([facility]) Vital Signs (Past 12 Hours) Vital Signs Temp Pulse Pulse Resp BP Pulse Ox 07/27/19 13:53 61 20 118/75 96 07/27/19 12:53 36.6 C 66 18 104/76 96 07/27/19 11:53 78 18 113/69 96 07/27/19 11:23 36.7 C 59 L 19 111/65 96 07/27/19 10:53 61 99/65 L 96 07/27/19 10:45 59 L 18 106/64 95 07/27/19 10:38 36.6 C 57 L 20 98/61 L 94 07/27/19 10:30 58 L 18 102/60 95 07/27/19 08:50 64 18 94/57 L 95 07/27/19 07:32 37.3 C 60 16 114/70 95 07/27/19 03:48 37 C 67 16 105/67 93 Laboratory Results 07/27/19 06:52 07/27/19 06:52 ECG Additional Comments: EKG performed at 0701 reviewed and demonstrated NSR at 65 / min, no acute changes.
--- NOTE | 2019-07-28 04:55 | Discharge Summary ---
Date of Service Date of Admission: 07/25/19 Date of Discharge: 07/27/19 Admission Exam Per Admitting Provider This is a 48-year-old female with past medical history significant for allergic rhinitis, history of tobacco use disorder, history of depression, history of condyloma acuminatum, who lives with his son. Smokes half pack a day for last about 32 years. Presents with chest pain. The patient states since last weekend she noticed retrosternal chest pain, no radiation. Yesterday, it was 7/10 in severity, dull aching pain, but today it was about 3/10 in severity. She says the pain is more when she is anxious or when she is exerting and relieves with rest. She moved to a new house in December, there are a lot of stairs and climbing the stairs is making her short of breath. Also she has chronic dizziness. She was a little nauseous earlier today. She states she easily sweats with the heat. Denies any fever, chills. No cough, no headache. Her vision is not great and she follows with eye doctor. No earaches, no runny nose, no sore throat. Appetite is okay. No dysphagia, no odynophagia. No diarrhea, no constipation, no blood in stools or black stools. No burning micturition, no hematuria. No swelling in the legs, no rash, no easy bruising or easy bleeding. Sleeps okay. Principal Diagnosis chest pain, noncardiac OTHER ACUTE / NEW DIAGNOSES dyslipidemia coronary artery disease, nonocclusive wide-complex tachycardia Discharge Data Allergies Allergy/AdvReac Type Severity Reaction Status Date / Time Penicillins Allergy Unknown Unknown Verified 07/25/19 18:27 prednisone AdvReac Unknown Sleepiness Verified 07/25/19 18:27 Consultations 07/25/19 19:28 ED Decision to Admit Stat 07/26/19 08:00 Consult Cardiology Routine Procedures Performed Operation Date: 07/27/19 09:30 Actual Procedures p Cineradiography w/Routine Exam - Tony Taylor DO p Cath, Left with Cors and Vent - Tony Taylor DO Ordered Studies 07/27/19 07:18 CL Cath Imgs for PACS use only Routine Hospital Course (1) Chest pain: Presented with chest pressure, palpitations, and dyspnea on exertion. D-dimer normal, so pulmonary embolism very unlikely. [place] ruled out. Echo showed mild concentric LVH, normal LVEF, no wall motion abnormalities. Stress echo demonstrated inferior ST depression and T-wave inversions at low level of exercise. Cardiac cath showed mild nonocclusive coronary artery disease. Family history of early CAD. Aspirin, statin, smoking cessation recommended. Smoker. May have COPD contributing to symptoms. Consider outpatient PFT's. (2) Arrhythmia: 13 beat run of wide-complex tachycardia noted while sleeping- asymptomatic. K & Mg normal. Normal LVEF per echo. No beta blade because of bradycardia. Outpatient ZIO recommended. (3) Hyperlipidemia: Total cholesterol 275, LDL 194, HDL 40, triglycerides 205. Early coronary artery disease noted on cardiac catheterization. Started on atorvastatin. (4) Cigarette smoker: Importance of smoking cessation discussed. Nicotine gum recommended. Follow-up with PCP. (5) DVT prophylaxis: SCDs ordered. Ambulating. (6) Discharge planning issues: Discharged to home. Family Medicine follow-up with Dr. Hawkins. Cardiology follow-up with Dr. Gamble or his colleagues. Total Time Total Time Spent Total Time Spent (In Minutes): 35 Discharge Plan Discharge Items Patient Disposition: Home - Self-Care Reason For Visit: CHEST PAIN Discharge Diagnosis: chest pain- no sign of heart attack Condition on Discharge: Good Activity: Resume your previous activity Non-emergency contact: Primary Care Provider, Hospitalist and Car Audio Installer Call non-emergency contact if: you have any medication questions and your symptoms worsen Follow-up/Referrals: Ciro Gamble DO [Car Audio Installer] - (08/05 at 8:45am @[facility] ) Maggie Hawkins DO [Primary Care Provider] - (08/01/2019 1:00 PM Maggie Hawkins DO) Diet: Heart Healthy Addtl Attending Provider Instructions: MEDICATION CHANGES: Take aspirin 81 mg daily to help prevent heart attacks and strokes. Take atorvastatin (Lipitor) 40 mg daily to lower cholesterol and help prevent heart attacks and strokes. SUMMARY OF TEST RESULTS: No sign of a heart attack. Heart catheterization showed mild / early coronary artery disease. PENDING TEST RESULTS: ZIO patch (heart monitor) to be arranged. RECOMMENDATIONS FOR FOLLOW-UP: Cardiology follow-up with Dr. Gamble or one of his colleagues. Please ask Dr. Hawkins for to arrange for referral and appointment. INSTRUCTIONS FOR CARDIAC CATHETERIZATION: ACTIVITY RECOMMENDATIONS: Excess manipulation of the wrist should be avoided for the next 24-48 hours. * No lifting over 2 pounds (approximately a 1/2 gallon of milk) with the utilized arm for 24 hours. * No strenuous activity such as bowling or tennis for 3 days. * Keep the site of the procedure covered with a bandage for 24 hours. *You may shower the day after the procedure. Do not take a tub bath or submerge the puncture site in water for the next 3 days. *Do not operate any motorized equipment for 3 days. SPECIAL CARE INSTRUCTIONS: The site may be slightly bruised and sore following your procedure. Should any of the following occur, contact the Dr. who performed your procedure. 1. Redness/inflammation, swelling, chills, or fever, or colored drainage at procedure site within 3-7 days after your procedure. 2. Coldness, discoloration, ongoing numbness, severe pain, or swelling. Expect mild tingling of hand and tenderness at the puncture site for up to three days. If this persists beyond three days, or other symptoms develop, notify the Dr. who performed your procedure. BLEEDING: If the procedure site on your wrist begins to bleed, do not panic 1. Place 1 or 2 fingers firmly just slightly above the insertion site to stop the bleeding. You may be able to feel your pulse as you hold pressure. 2. Lift your finger after 5 minutes to see if the bleeding has stopped. 3. Once the bleeding has stopped, gently wipe the wrist area clean with a bandage. * If the bleeding from your wrist does not stop after 10 minutes, or if there is a large amount of bleeding or spurting, call 911 (do not drive yourself to the hospital). SKIN IRRITATION: * You may experience some redness and/or swelling in the area where radiation was administered. If any skin irritation occurs, please contact your family physician. FOLLOW UP VISIT: Keep any scheduled doctor appointments. OTHER INSTRUCTIONS: Please quit smoking. Nicotine gum can help- use as directed. Please discuss further with Dr. Hawkins when you see her. Seek medical attention if you have: * temperature above 101 * chest pain or trouble breathing * abdominal pain, nausea, vomiting * diarrhea, dark stools or bloody stools * any unanswered questions or concerns Call 911 if symptoms are severe. Please take good care of yourself. Call if you have any questions or problems. You can reach a [facility] hospitalist on duty at [facility] 24 hours a day by calling [phone]. My cell # is [phone]. Pending Studies at Discharge: No Stand-Alone Forms: My [facility], Smoking Cessation Medications and DC Order Prescriptions: New aspirin 81 mg tablet,delayed release (DR/EC) 81 mg PO DAILY Qty: 30 RF: 0 atorvastatin 40 mg tablet 40 mg PO DAILY Qty: 30 RF: 5 Continued paroxetine HCl 37.5 mg tablet extended release 24 hr 37.5 mg PO DAILY RF: 0 Women's One Daily 18 mg iron-400 mcg-500 mg Ca Tablet 1 tab PO DAILY RF: 0 Discharge Orders: Discharge Order (Routine); Ordered 07/27/19 Ordered By: Dickson Li Admission Data Admit Date/Time: 07/26/19 16:12 Attending Provider: Dickson Li Admit Provider: Pilo Rodrigez Primary Care Provider: Maggie Hawkins Other Providers: Pilo Rodrigez ; Srini Jackson ; Ciro Gamble ; Mark Javed ; Tony Taylor ; Davie Neves ; Erasmo Louis ; Ml Bryant ; Briana Martinez ; Conrad Hidalgo ; Suzette Lewis H. Other Interventions: Discharge Summary Assessment (RN) Last Done: 07/27/19 15:09 DC Date/Time DO NOT enter until pt leaves facility: 07/27/19 17:43
== END 2019-07-27 17:43 | disposition home or self-care (01) | DRG 287 ==
LOC: 2S 16:38 → ED 16:38 → 2S 20:40 → SUATTDRO 07-26 16:12

== ENCOUNTER 2020-09-28 15:40 | Observation (INO) ==
[2020-09-28 18:01] LABS: Hematocrit (blood only) 41.9 % (37-47); Hemoglobin 15.3 g/dL (12.0-16.0); Mean Corpuscular Hemoglobin 33.6 pg (25-34); Mean Corpuscular Hgb Conc 36.5 g/dL (32-36); Mean Corpuscular Volume 91.9 fL (80-100); Mean Platelet Volume 9.9 fL (7.4-10.4); Platelet Count 277 K/uL (130-400); RDW Coefficient of Variation 12.1 % (11.5-14.5); RDW Standard Deviation 41.2 fL (36.4-46.3); Red Blood Count 4.56 M/uL (4.2-5.4); White Blood Count 8.44 K/uL (4.8-10.8)
--- NOTE | 2020-09-28 18:05 | Emergency Department Note ---
Impression & Plan Retrosternal chest pain ED Provider Note INFORMANT: Patient ED PROVIDER(S): Dickson Peter MD CHIEF COMPLAINT: Chest pain PLAN: Disposition: Admitted Condition: Good Outpatient prescription management: none Referral: None MEDICAL DECISION MAKING: Patient presented with chest pain. It resolved by time I saw her. A twelve-lead ECG was performed and revealed anterior T wave inversions. When compared to prior ECG the T wave versions are new. They replaced nonspecific T wave abnormality. Patient's chest x-ray was negative. Her CBC, chemistry panel, troponin and D-dimer was negative. The patient had already taken aspirin today. In light of her cardiac history and active smoking further management in the hospital was felt to be appropriate. Patient was in agreement. Consultation was made with Dr. Rodrigez, [facility] service Triage Nursing notes reviewed and agree them. Prior medical records reviewed regarding prior office visit and ECGs. Vital Signs: reviewed and remarkable for no significant abnormalities Differential diagnosis: Cardiac ischemia, aortic dissection, pulmonary embolism, pneumothorax, pneumonia, pericarditis, myocarditis, esophageal rupture, GERD, cholecystitis, pancreatitis, musculoskeletal, as well as other pathologies. Diagnostics interpreted by me: ECG: Twelve-lead ECG reveals a sinus bradycardia 56 bpm. No PACs or PVCs noted. Normal axis. There is anterior T wave inversions in V2 and V3. When compared to prior ECG of 07/27/2019 T wave inversions are new. Cardiac Monitoring: Cardiac monitoring ordered by me: The patient was placed on continuous cardiac monitoring and observed. It revealed a normal sinus rhythm at 61 beats per minute without ectopy or evidence of dysrhythmia. Imaging studies: Chest x-ray. Findings: A chest x-ray was performed and revealed no pneumothorax, effusion, infiltrate, pulmonary edema, free air under the diaphragm, or wide mediastinum. [facility] HPI: The patient is a 49 year old female who presents to the Emergency Room with complaints of retrosternal chest pain. This started 2 days ago and is persisting. The patient also notes the following associated symptoms, dizziness, palpitations, chills, ROMERO, nausea, SOB, left arm numbness, diarrhea. Denies covid exposure. The patient has found no relieving factors. Current pain is rated as 5/10. Pt was seen at [facility] clinic and referred to the ER for additional testing. Pt denies LOC, headache, fevers, chills, diaphoresis, visual changes, neck pain, vomiting, abdominal pain, back pain, melena, hematochezia, urinary symptoms, weakness, lymphadenopathy, rash, or other complaints. ROS: See above HPI for pertinent positives & negatives. A total of 10 systems reviewed and were otherwise negative. PAST MEDICAL HISTORY:See Below , high cholesterol PAST SURGICAL HISTORY:See Below, FAMILY HISTORY:See Below SOCIAL HISTORY:See Below, +tobacco HOME MEDICATIONS:See Below ALLERGIES:See Below VITALS:See Below PHYSICAL EXAMINATION: GENERAL: Awake, alert, well-appearing, in no distress HENT: Normocephalic, atraumatic. Oropharynx unremarkable. EYES: Normal conjunctiva. Sclera non-icteric. NECK: Inspection normal. Non-tender. Supple. No nuchal rigidity. FROM. No masses. RESPIRATORY: Clear to auscultation. No wheezes. No rales. Normal respiratory effort. CARDIAC: Normal rate. Normal rhythm. No murmurs. No rubs. Extremities warm and well perfused. Pulses equal. No JVD. GI: Soft, non-distended. No tenderness to palpation. No rebound or guarding. No masses. RECTAL: Deferred. MUSCULOSKELETAL: Atraumatic. Chest examination reveals no tenderness. The back is symmetrical on inspection without obvious abnormality. There is no CVA tend erness to palpation. No joint edema. LOWER EXTREMITIES: Calves are equal size bilaterally and non-tender. No edema. No discoloration. NEURO: Normal sensorium. No sensory or motor deficits noted. SKIN: No rash or jaundice noted. Dickson Peter MD Past Med/Surg History Medical History (Updated 09/28/20 @ 18:01 by Dickson Peter MD) Anxiety Arrhythmia 13 beat run wide-complex tachycardia 07/26/19 Cervical radiculitis Coronary artery disease, non-occlusive per cardiac cath [facility] 07/27/19 Hyperlipidemia Surgical History No pertinent past surgical history Social History Smoking Status: Current every day smoker Second Hand Exposure: Yes; Hx Alcohol Use: No Hx Substance Use: No Preferred Language: Finnish Beliefs That Will Affect Care: None Current Living Situation: Family Feels Safe at Home: Yes Assistive Devices: None Allergies Allergies Allergy/AdvReac Type Severity Reaction Status Date / Time Penicillins Allergy Unknown Unknown Verified 09/28/20 19:46 prednisone AdvReac Unknown Sleepiness Verified 09/28/20 19:46 Home Meds Home Medications Medication Instructions Recorded Confirmed paroxetine HCl 37.5 mg PO DAILY 07/25/19 09/28/20 metoprolol succinate 25 mg PO DAILY 09/28/20 09/28/20 Previous Rx's Medication Instructions Recorded aspirin 81 mg PO DAILY #30 tab 07/27/19 Results & Data (ED) Vital Signs Vital Signs - 24 hr 09/28/20 15:47 09/28/20 18:00 09/28/20 20:15 Temperature 36.8 C Temperature Source Temporal Artery Scan Pulse Rate 59 L Pulse Rate [Apical] 53 L 62 Respiratory Rate 18 16 18 Blood Pressure 108/68 Blood Pressure [Left Arm] 122/74 128/62 Blood Pressure Mean 81 Blood Pressure Mean [Left Arm] 90 84 Pulse Oximetry 100 99 96 Oxygen Delivery Method Room Air Sepsis Recent Fever Within 48 Hours No Sepsis New/Unexplained Change in Mental Status No Sepsis Action Taken by Nursing No Action Required 09/28/20 22:30 Temperature Temperature Source Pulse Rate Pulse Rate [Apical] 53 L Respiratory Rate 18 Blood Pressure Blood Pressure [Left Arm] 106/67 Blood Pressure Mean Blood Pressure Mean [Left Arm] 80 Pulse Oximetry 96 Oxygen Delivery Method Room Air Sepsis Recent Fever Within 48 Hours Sepsis New/Unexplained Change in Mental Status Sepsis Action Taken by Nursing Laboratory Data Result diagrams: 09/28/20 17:40 09/28/20 17:40 Lab Results 09/28/20 09/28/20 09/28/20 Range/Units 17:40 17:40 17:40 WBC 8.44 (4.8-10.8) K/uL RBC 4.56 (4.2-5.4) M/uL Hgb 15.3 (12.0-16.0) g/dL Hct 41.9 (37-47) % MCV 91.9 (80-100) fL MCH 33.6 (25-34) pg MCHC 36.5 H (32-36) g/dL RDW Std Deviation 41.2 (36.4-46.3) fL RDW Coeff of Bernardino 12.1 (11.5-14.5) % Plt Count 277 (130-400) K/uL MPV 9.9 (7.4-10.4) fL Immature Gran % (Auto) 0.1 % Neut % (Auto) 38.8 % Lymph % (Auto) 53.9 % Quay % (Auto) 5.6 % Eos % (Auto) 1.2 % Baso % (Auto) 0.4 % Neut # (Auto) 3.28 (1.4-6.5) K/uL Lymph # (Auto) 4.55 H (1.2-3.4) K/uL Quay # (Auto) 0.47 (0.11-0.59) K/uL Eos # (Auto) 0.10 (0-0.5) K/uL Baso # (Auto) 0.03 (0-0.2) K/uL Immature Gran # (Auto) 0.01 (0.00-0.02) K/uL PT 9.6 (9.0-12.0) Seconds INR 0.9 (0.9-1.1) APTT 28.5 (21.0-31.0) Seconds PTT Ratio 1.1 D-Dimer < 190 (0-500) ug/L FEU Sodium 142 (136-145) mmol/L Potassium 4.2 (3.5-5.1) mmol/L Chloride 107 (98-107) mmol/L Carbon Dioxide 31 (21-32) mmol/L Anion Gap 4.0 (3-11) BUN 13 (7-18) mg/dl Creatinine 0.80 (0.6-1.2) mg/dl Est Cr Clr Drug Dosing 74.9 ml/min Est GFR ( Amer) 98.9 Est GFR (Non-Af Amer) 85.4 BUN/Creatinine Ratio 16.8 (10-20) Glucose 94 (70-99) mg/dl Calcium 8.9 (8.5-10.1) mg/dl Total Bilirubin 0.3 (0.2-1) mg/dl AST 19 (15-37) U/L ALT 27 (12-78) U/L Alkaline Phosphatase 99 (45-117) U/L Troponin I < 0.015 (0-0.045) ng/ml Total Protein 7.7 (6.4-8.2) gm/dl Albumin 3.8 (3.4-5.0) gm/dl Globulin 3.9 (2.5-4.0) gm/dl Albumin/Globulin Ratio 1.0 (0.9-2) HCG, Qual (Negative) COVID-19 Eval Order SARS-CoV-2 (PCR) (Negative) Influenza Type A (PCR) (Neg) Influenza Type B (PCR) (Neg) RSV (RT-PCR) (Neg) 09/28/20 09/28/20 09/28/20 Range/Units 17:40 22:11 22:11 WBC (4.8-10.8) K/uL RBC (4.2-5.4) M/uL Hgb (12.0-16.0) g/dL Hct (37-47) % MCV (80-100) fL MCH (25-34) pg MCHC (32-36) g/dL RDW Std Deviation (36.4-46.3) fL RDW Coeff of Bernardino (11.5-14.5) % Plt Count (130-400) K/uL MPV (7.4-10.4) fL Immature Gran % (Auto) % Neut % (Auto) % Lymph % (Auto) % Quay % (Auto) % Eos % (Auto) % Baso % (Auto) % Neut # (Auto) (1.4-6.5) K/uL Lymph # (Auto) (1.2-3.4) K/uL Quay # (Auto) (0.11-0.59) K/uL Eos # (Auto) (0-0.5) K/uL Baso # (Auto) (0-0.2) K/uL Immature Gran # (Auto) (0.00-0.02) K/uL PT (9.0-12.0) Seconds INR (0.9-1.1) APTT (21.0-31.0) Seconds PTT Ratio D-Dimer (0-500) ug/L FEU Sodium (136-145) mmol/L Potassium (3.5-5.1) mmol/L Chloride (98-107) mmol/L Carbon Dioxide (21-32) mmol/L Anion Gap (3-11) BUN (7-18) mg/dl Creatinine (0.6-1.2) mg/dl Est Cr Clr Drug Dosing ml/min Est GFR ( Amer) Est GFR (Non-Af Amer) BUN/Creatinine Ratio (10-20) Glucose (70-99) mg/dl Calcium (8.5-10.1) mg/dl Total Bilirubin (0.2-1) mg/dl AST (15-37) U/L ALT (12-78) U/L Alkaline Phosphatase (45-117) U/L Troponin I (0-0.045) ng/ml Total Protein (6.4-8.2) gm/dl Albumin (3.4-5.0) gm/dl Globulin (2.5-4.0) gm/dl Albumin/Globulin Ratio (0.9-2) HCG, Qual Negative (Negative) COVID-19 Eval Order CovFluRsv at [facility] SARS-CoV-2 (PCR) NEGATIVE (Negative) Influenza Type A (PCR) Negative (Neg) Influenza Type B (PCR) Negative (Neg) RSV (RT-PCR) Negative (Neg) Imaging Data Radiologist's Impression: Chest X-Ray 09/28/20 18:05 SINGLE VIEW CHEST CLINICAL HISTORY: Atypical chest pain. FINDINGS: An AP, portable, upright chest radiograph is compared to study dated 07/25/2019. The cardiomediastinal silhouette is unremarkable. The lungs and pleural spaces are clear. No pneumothorax is seen. There are healed left-sided rib fractures. IMPRESSION: No active disease in the chest. ACT 112: Negative or not required by law. Electronically signed by: Selvin Lentz M.D. 09/28/2020 6:26 PM Discharge Plan Visit Data Chief Complaint: Chest Pain Stated Complaint: CHEST PAIN - NUMBNESS IN LEFT ARM ED Provider: Dickson Peter Discharge Problem: Retrosternal chest pain Forms Stand Alone Forms: My [facility] Prescriptions Prescriptions: No Action paroxetine HCl 37.5 mg tablet extended release 24 hr 37.5 mg PO DAILY RF: 0 aspirin 81 mg tablet,delayed release (DR/EC) 81 mg PO DAILY Qty: 30 RF: 0 metoprolol succinate 25 mg tablet extended release 24 hr 25 mg PO DAILY RF: 0
[2020-09-28 18:15] LABS: D Dimer < 190 ug/L FEU (0-500); INR 0.9 (0.9-1.1); Partial Thromboplastin Ratio 1.1; Partial Thromboplastin Time 28.5 Seconds (21.0-31.0); Prothrombin Time 9.6 Seconds (9.0-12.0)
[2020-09-28 18:23] LABS: Alanine Aminotransferase 27 U/L (12-78); Albumin Level 3.8 gm/dl (3.4-5.0); Aspartate Aminotransferase 19 U/L (15-37); BUN Creatinine Ratio 16.8 (10-20); Blood Urea Nitrogen 13 mg/dl (7-18); Calcium 8.9 mg/dl (8.5-10.1); Carbon Dioxide 31 mmol/L (21-32); Chloride 107 mmol/L (98-107); Creatinine Clr Calc Pharmacy 74.9 ml/min; Est GFR (African American) 98.9; Est GFR (Non-African American) 85.4; Glucose 94 mg/dl (70-99); Potassium 4.2 mmol/L (3.5-5.1); Sodium 142 mmol/L (136-145)
--- NOTE | 2020-09-28 18:27 | XRay Report ---
SINGLE VIEW CHEST CLINICAL HISTORY: Atypical chest pain. FINDINGS: An AP, portable, upright chest radiograph is compared to study dated 07/25/2019. The cardiom ediastinal silhouette is unremarkable. The lungs and pleural spaces are clear. No pneumothorax is see n. There are healed left-sided rib fractures. IMPRESSION: No active disease in the chest. ACT 112: Negative or not required by law. Electronically signed by: Selvin Lentz M.D. 09/28/2020 6:26 PM
[2020-09-28 18:28] LABS: Alkaline Phosphatase 99 U/L (45-117); Bilirubin,Total 0.3 mg/dl (0.2-1); Globulin 3.9 gm/dl (2.5-4.0); Total Protein 7.7 gm/dl (6.4-8.2); Troponin I < 0.015 ng/ml (0-0.045)
[2020-09-28 18:43] LABS: Pregnancy Test, Serum Negative (Negative)
[2020-09-28 20:33] LABS: Basophils # (auto) 0.03 K/uL (0-0.2); Basophils % (auto) 0.4 %; Eosinophils % (auto) 1.2 %; Immature Granulocytes # (auto) 0.01 K/uL (0.00-0.02); Immature Granulocytes % (auto) 0.1 %; Lymphocytes # (auto) 4.55 K/uL (1.2-3.4); Lymphocytes % (auto) 53.9 %; Monocytes # (auto) 0.47 K/uL (0.11-0.59); Monocytes % (auto) 5.6 %; Neutrophils # (auto) 3.28 K/uL (1.4-6.5); Neutrophils % (auto) 38.8 %
[2020-09-28 23:05] LABS: Influenza A virus by PCR Negative (Neg); Influenza B virus by PCR Negative (Neg); RSV by PCR Negative (Neg); SARS CoV2 RNA(COVID-19) InHosp NEGATIVE (Negative)
[2020-09-29] MEDS ORDERED: POLYETHYLENE (MIRALAX) 17 GM PACK PO PRN (00:57)
[2020-09-29] MEDS ORDERED: NITROGLYCERIN SL 0.4 MG/TAB TAB SL PRN (00:57)
[2020-09-29] MEDS ORDERED: ONDANSETRON INJ 2 MG/ML 2 ML VIAL IV PRN (00:57)
[2020-09-29] MEDS ORDERED: ACETAMINOPHEN 325 MG TAB PO PRN (00:57)
--- NOTE | 2020-09-29 02:54 | History and Physical Report ---
DATE OF ADMISSION: 09/28/2020 CHIEF COMPLAINT: Chest pain. HISTORY OF PRESENT ILLNESS: This is a 49-year-old female with past medical history significant for hyperlipidemia, paroxysmal supraventricular tachycardia, depression, ongoing tobacco use disorder, who presents with chest pain. The patient lives alone. Since today morning, she had noticed chest pain in the middle of the chest and left arm numbness and she was at work and as the day progressed, it got worse, 7/10 in severity, which prompted her to come to the ER. Currently, the pain is subsiding, it is 3/10 in severity. Earlier in the day, she had nausea, but that is resolved now. Denies any sweating, no shortness of breath, no cough, no fever, no chills. Had headache earlier, that has resolved. No dizziness, no blurred visions, no earache, no runny nose, no sore throat, no cough, no abdominal pain. Normal bowel and bladder movements. Otherwise active. No swelling in the legs, no rash. Currently resting comfortably and hemodynamically stable. ALLERGIES: PENICILLINS, PREDNISONE. PAST MEDICAL HISTORY: As mentioned above. PAST SURGICAL HISTORY: Injection of lumbar and cervical spine, ligation of oviducts, Pap screen, tonsillectomy. MEDICATIONS: The patient is on aspirin 81 mg p.o. daily, metoprolol succinate 25 mg p.o. daily, paroxetine 37.5 mg p.o. daily. FAMILY HISTORY: Significant for mother had alcoholism, cardiac bypass, hypertension, anxiety; father has anxiety. SOCIAL HISTORY: Currently single, smokes half pack a day for the last 23 years. Alcohol occasional. No drug use. REVIEW OF SYSTEMS: As per HPI. Rest of the review of systems negative. PHYSICAL EXAMINATION: GENERAL: The patient is of moderate build, not in acute distress. VITAL SIGNS: Temperature 36.8, pulse 53, respiratory rate 18, blood pressure 106/67, oxygen 96% on room air. HEENT: Pupils equal, round, and reactive to light. Oral mucosa moist. NECK: No JVD, no neck masses. CARDIOVASCULAR: S1, S2 heard, regular rate and rhythm, no murmur, no gallop. RESPIRATORY SYSTEM: Normal AP diameter. No accessory muscle use. No wheezing, no crackles. ABDOMEN: Soft, bowel sounds present, nontender. No distention. CENTRAL NERVOUS SYSTEM: Cranial nerves II-XII grossly intact, nonfocal. EXTREMITIES: No edema, no erythema. LABORATORY DATA: WBC 8.4, hemoglobin 15.3, hematocrit 41.9, platelets 277. PT 9.6, INR 0.9, APTT 28.1. D-dimer less than 190. Sodium 142, potassium 4.2, chloride 107, bicarbonate 31, BUN 13, creatinine 0.8, serum glucose 94, calcium 8.9, total bilirubin 0.3, AST 19, ALT 27, alkaline phosphatase 99. Troponin I less than 0.015. HCG negative. SARS-CoV-2 PCR negative. Influenza A and B PCR negative. RSV PCR negative. IMAGING DATA: Chest x-ray, no acute active disease in chest. EKG: Sinus bradycardia at a rate of 56. Nonspecific T-wave abnormalities. ASSESSMENT AND PLAN: This 49-year-old female presents with chest pain. 1. Chest pain: Rule out acute coronary syndrome. Initial workup is negative. The patient has risk factors of age, family history, and ongoing smoking. We will monitor in the [facility], serial enzymes, echo, keep n.p.o. until seen by cardiology. Further recommendations as per cardiology. 2. History of paroxysmal supraventricular tachycardia: On metoprolol. 3. History of depression: On paroxetine. 4. History of hyperlipidemia, not on any medication: Will follow the lipid profile. 5. Deep vein thrombosis prophylaxis: Sequential compression devices. 6. Disposition: Observation in [facility]. Expect to discharge home and follow with family doctor. Level 1 full code. MTDD
[2020-09-29 06:05] LABS: Hematocrit (blood only) 42.2 % (37-47); Hemoglobin 14.9 g/dL (12.0-16.0); Mean Corpuscular Hemoglobin 32.6 pg (25-34); Mean Corpuscular Hgb Conc 35.3 g/dL (32-36); Mean Corpuscular Volume 92.3 fL (80-100); Mean Platelet Volume 9.7 fL (7.4-10.4); Platelet Count 227 K/uL (130-400); RDW Coefficient of Variation 12.1 % (11.5-14.5); RDW Standard Deviation 40.8 fL (36.4-46.3); Red Blood Count 4.57 M/uL (4.2-5.4); White Blood Count 6.77 K/uL (4.8-10.8)
[2020-09-29 06:22] LABS: BUN Creatinine Ratio 14.9 (10-20); Blood Urea Nitrogen 11 mg/dl (7-18); Carbon Dioxide 30 mmol/L (21-32); Chloride 109 mmol/L (98-107); Creatinine Clr Calc Pharmacy 79.9 ml/min; Est GFR (Non-African American) 92.3; Glucose 95 mg/dl (70-99); Magnesium 2.1 mg/dl (1.8-2.4); Potassium 3.9 mmol/L (3.5-5.1); Sodium 141 mmol/L (136-145)
[2020-09-29 06:27] LABS: Chol HDL Ratio 6; Cholesterol 259 mg/dl (0-200); HDL Cholesterol 43 mg/dl; LDL Cholesterol Calculated 185 mg/dl; Triglycerides 154 mg/dl (0-150); Troponin I < 0.015 ng/ml (0-0.045); VLDL Cholesterol 31 mg/dl
[2020-09-29 06:35] LABS: Basophils # (auto) 0.02 K/uL (0-0.2); Basophils % (auto) 0.3 %; Eosinophils # (auto) 0.12 K/uL (0-0.5); Eosinophils % (auto) 1.8 %; Immature Granulocytes # (auto) 0.01 K/uL (0.00-0.02); Immature Granulocytes % (auto) 0.1 %; Lymphocytes # (auto) 3.74 K/uL (1.2-3.4); Lymphocytes % (auto) 55.2 %; Monocytes # (auto) 0.54 K/uL (0.11-0.59); Neutrophils # (auto) 2.34 K/uL (1.4-6.5); Neutrophils % (auto) 34.6 %
--- NOTE | 2020-09-29 06:50 | Electrocardiogram Report ---
Test Reason : Blood Pressure : / mmHG Vent. Rate : 056 BPM Atrial Rate : 056 BPM P-R Int : 136 ms QRS Dur : 084 ms QT Int : 430 ms P-R-T Axes : 041 064 056 degrees QTc Int : 414 ms Sinus bradycardia Nonspecific T wave abnormality Abnormal ECG When compared with ECG of 27-JUL-2019 07:01, Nonspecific T wave abnormality now evident in Anterior leads Confirmed by Abdias Encarnacion ([id number]) on 09/29/2020 6:49:41 AM Referred By: Confirmed By:Abdias Encarnacion
--- NOTE | 2020-09-29 08:34 | Hospitalist Progress Note ---
Date of Service September 29, 2020 Assessment & Plan (1) Retrosternal chest pain: (2) Paroxysmal supraventricular tachycardia: This 49-year-old female presents with chest pain. 1. Chest pain: Rule out acute coronary syndrome. Initial workup is negative. The patient has risk factors of age, family history, and ongoing smoking. We will monitor in the [facility], serial enzymes, echo, keep n.p.o. until seen by cardiology. Further recommendations as per cardiology. Troponin x3 negative Assessments have included coronary angiography without obstruction in July 2019. Symptoms currently atypical for angina Patient with prior poor tolerance of medical therapies. No indications for stress testing given stable enzymes EKG in past false positive testing. Recs: Ambulate, if stable discharge today Reduce metoprolol succinate to 12.5 mg/day, add low-dose amlodipine to 2.5 mg daily Would retrial lipid reduction with rosuvastatin 5 mg 3 days/week and likely add ezetimibe to her regimen in future. Patient would warrant therapy with PCSK9 if fails low-dose therapy Strongly urged tobacco cessation which is contributing to current complaints Arrange outpatient cardiology follow-up 2 to 4-week Smoking cessation counseling provided. Patient is interested in smoking cessation. Currently on nicotine patch. Discussed calling [employer], [place] smoking cessation line. Patient interested in contacting them. 2. History of paroxysmal supraventricular tachycardia: On metoprolol. Will decrease dose, as mentioned above. 3. History of depression: On paroxetine. 4. History of hyperlipidemia, not on any medication: LDL 185 - will start rosuvastatin as above DVT prophylaxis: Sequential compression devices. Disposition: Observation in [facility]. Expect to discharge home Admission and Anticipated Discharge Date Admission Date: September 28, 2020 Subjective Patient seen in follow-up of chest pain, shortness of breath Currently feeling much better, denies any chest pain Says she has been walking in her room, no dizziness no shortness of breath Discussed results with cardiology Also discussed about quitting tobacco and talked about 1800 quit now line, patient is very interested in quitting smoking Review of Systems Review of Systems: All systems reviewed & are unremarkable except as noted in HPI & below Constitutional: no fever and no chills Respiratory: no cough and no dyspnea Cardiovascular: no chest pain and no palpitations Gastrointestinal: no abdominal pain, no nausea and no vomiting Physical Exam Physical Exam: GENERAL: The patient is of moderate build, not in acute distress. HEENT: NC/AT, equal, round, and reactive to light. Oral mucosa moist. NECK: No JVD, no neck masses. CARDIOVASCULAR: S1, S2 heard, regular rate and rhythm, no murmur, no gallop. RESPIRATORY SYSTEM: Normal AP diameter. No accessory muscle use. No wheezing, no crackles. ABDOMEN: Soft, bowel sounds present, nontender. No distention. NEURO: Alert and oriented, answering questions appropriately, speech fluent, no facial symmetry, moves extremities EXTREMITIES: No edema, no erythema. Results & Data Results & Data ([facility]) Vital Signs (Past 12 Hours) Vital Signs Temp Pulse Pulse Pulse Resp BP BP 09/29/20 07:36 36.6 C 56 L 18 114/71 09/29/20 03:33 36.4 C L 52 L 16 103/65 09/29/20 01:13 52 L 09/29/20 00:58 36.4 C L 53 L 16 126/80 09/28/20 22:30 53 L 18 106/67 Pulse Ox 09/29/20 07:36 95 09/29/20 03:33 97 09/29/20 01:13 09/29/20 00:58 97 09/28/20 22:30 96 Laboratory Results 09/29/20 09/29/20 09/28/20 Range/Units 05:51 05:51 22:11 WBC 6.77 (4.8-10.8) K/uL RBC 4.57 (4.2-5.4) M/uL Hgb 14.9 (12.0-16.0) g/dL Hct 42.2 (37-47) % MCV 92.3 (80-100) fL MCH 32.6 (25-34) pg MCHC 35.3 (32-36) g/dL RDW Std Deviation 40.8 (36.4-46.3) fL RDW Coeff of Bernardino 12.1 (11.5-14.5) % Plt Count 227 (130-400) K/uL MPV 9.7 (7.4-10.4) fL Immature Gran % (Auto) 0.1 % Neut % (Auto) 34.6 % Lymph % (Auto) 55.2 % Davie % (Auto) 8.0 % Eos % (Auto) 1.8 % Baso % (Auto) 0.3 % Neut # (Auto) 2.34 (1.4-6.5) K/uL Lymph # (Auto) 3.74 H (1.2-3.4) K/uL Davie # (Auto) 0.54 (0.11-0.59) K/uL Eos # (Auto) 0.12 (0-0.5) K/uL Baso # (Auto) 0.02 (0-0.2) K/uL Immature Gran # (Auto) 0.01 (0.00-0.02) K/uL PT (9.0-12.0) Seconds INR (0.9-1.1) APTT (21.0-31.0) Seconds PTT Ratio D-Dimer (0-500) ug/L FEU Sodium 141 (136-145) mmol/L Potassium 3.9 (3.5-5.1) mmol/L Chloride 109 H (98-107) mmol/L Carbon Dioxide 30 (21-32) mmol/L Anion Gap 3.0 (3-11) BUN 11 (7-18) mg/dl Creatinine 0.75 (0.6-1.2) mg/dl Est Cr Clr Drug Dosing 79.9 ml/min Est GFR ( Amer) 107.0 Est GFR (Non-Af Amer) 92.3 BUN/Creatinine Ratio 14.9 (10-20) Glucose 95 (70-99) mg/dl Calcium 9.0 (8.5-10.1) mg/dl Magnesium 2.1 (1.8-2.4) mg/dl Total Bilirubin (0.2-1) mg/dl AST (15-37) U/L ALT (12-78) U/L Alkaline Phosphatase (45-117) U/L Troponin I < 0.015 (0-0.045) ng/ml Total Protein (6.4-8.2) gm/dl Albumin (3.4-5.0) gm/dl Globulin (2.5-4.0) gm/dl Albumin/Globulin Ratio (0.9-2) Triglycerides 154 H (0-150) mg/dl Cholesterol 259 H (0-200) mg/dl LDL Cholesterol, Calc 185 mg/dl VLDL Cholesterol, Calc 31 mg/dl HDL Cholesterol 43 mg/dl Cholesterol/HDL Ratio 6 HCG, Qual (Negative) COVID-19 Eval Order SARS-CoV-2 (PCR) NEGATIVE (Negative) Influenza Type A (PCR) Negative (Neg) Influenza Type B (PCR) Negative (Neg) RSV (RT-PCR) Negative (Neg) 09/28/20 09/28/20 09/28/20 Range/Units 22:11 17:40 17:40 WBC (4.8-10.8) K/uL RBC (4.2-5.4) M/uL Hgb (12.0-16.0) g/dL Hct (37-47) % MCV (80-100) fL MCH (25-34) pg MCHC (32-36) g/dL RDW Std Deviation (36.4-46.3) fL RDW Coeff of Bernardino (11.5-14.5) % Plt Count (130-400) K/uL MPV (7.4-10.4) fL Immature Gran % (Auto) % Neut % (Auto) % Lymph % (Auto) % Davie % (Auto) % Eos % (Auto) % Baso % (Auto) % Neut # (Auto) (1.4-6.5) K/uL Lymph # (Auto) (1.2-3.4) K/uL Davie # (Auto) (0.11-0.59) K/uL Eos # (Auto) (0-0.5) K/uL Baso # (Auto) (0-0.2) K/uL Immature Gran # (Auto) (0.00-0.02) K/uL PT (9.0-12.0) Seconds INR (0.9-1.1) APTT (21.0-31.0) Seconds PTT Ratio D-Dimer (0-500) ug/L FEU Sodium 142 (136-145) mmol/L Potassium 4.2 (3.5-5.1) mmol/L Chloride 107 (98-107) mmol/L Carbon Dioxide 31 (21-32) mmol/L Anion Gap 4.0 (3-11) BUN 13 (7-18) mg/dl Creatinine 0.80 (0.6-1.2) mg/dl Est Cr Clr Drug Dosing 74.9 ml/min Est GFR ( Amer) 98.9 Est GFR (Non-Af Amer) 85.4 BUN/Creatinine Ratio 16.8 (10-20) Glucose 94 (70-99) mg/dl Calcium 8.9 (8.5-10.1) mg/dl Magnesium (1.8-2.4) mg/dl Total Bilirubin 0.3 (0.2-1) mg/dl AST 19 (15-37) U/L ALT 27 (12-78) U/L Alkaline Phosphatase 99 (45-117) U/L Troponin I < 0.015 (0-0.045) ng/ml Total Protein 7.7 (6.4-8.2) gm/dl Albumin 3.8 (3.4-5.0) gm/dl Globulin 3.9 (2.5-4.0) gm/dl Albumin/Globulin Ratio 1.0 (0.9-2) Triglycerides (0-150) mg/dl Cholesterol (0-200) mg/dl LDL Cholesterol, Calc mg/dl VLDL Cholesterol, Calc mg/dl HDL Cholesterol mg/dl Cholesterol/HDL Ratio HCG, Qual Negative (Negative) COVID-19 Eval Order CovFluRsv at [facility] SARS-CoV-2 (PCR) (Negative) Influenza Type A (PCR) (Neg) Influenza Type B (PCR) (Neg) RSV (RT-PCR) (Neg) 09/28/20 09/28/20 Range/Units 17:40 17:40 WBC 8.44 (4.8-10.8) K/uL RBC 4.56 (4.2-5.4) M/uL Hgb 15.3 (12.0-16.0) g/dL Hct 41.9 (37-47) % MCV 91.9 (80-100) fL MCH 33.6 (25-34) pg MCHC 36.5 H (32-36) g/dL RDW Std Deviation 41.2 (36.4-46.3) fL RDW Coeff of Bernardino 12.1 (11.5-14.5) % Plt Count 277 (130-400) K/uL MPV 9.9 (7.4-10.4) fL Immature Gran % (Auto) 0.1 % Neut % (Auto) 38.8 % Lymph % (Auto) 53.9 % Davie % (Auto) 5.6 % Eos % (Auto) 1.2 % Baso % (Auto) 0.4 % Neut # (Auto) 3.28 (1.4-6.5) K/uL Lymph # (Auto) 4.55 H (1.2-3.4) K/uL Davie # (Auto) 0.47 (0.11-0.59) K/uL Eos # (Auto) 0.10 (0-0.5) K/uL Baso # (Auto) 0.03 (0-0.2) K/uL Immature Gran # (Auto) 0.01 (0.00-0.02) K/uL PT 9.6 (9.0-12.0) Seconds INR 0.9 (0.9-1.1) APTT 28.5 (21.0-31.0) Seconds PTT Ratio 1.1 D-Dimer < 190 (0-500) ug/L FEU Sodium (136-145) mmol/L Potassium (3.5-5.1) mmol/L Chloride (98-107) mmol/L Carbon Dioxide (21-32) mmol/L Anion Gap (3-11) BUN (7-18) mg/dl Creatinine (0.6-1.2) mg/dl Est Cr Clr Drug Dosing ml/min Est GFR ( Amer) Est GFR (Non-Af Amer) BUN/Creatinine Ratio (10-20) Glucose (70-99) mg/dl Calcium (8.5-10.1) mg/dl Magnesium (1.8-2.4) mg/dl Total Bilirubin (0.2-1) mg/dl AST (15-37) U/L ALT (12-78) U/L Alkaline Phosphatase (45-117) U/L Troponin I (0-0.045) ng/ml Total Protein (6.4-8.2) gm/dl Albumin (3.4-5.0) gm/dl Globulin (2.5-4.0) gm/dl Albumin/Globulin Ratio (0.9-2) Triglycerides (0-150) mg/dl Cholesterol (0-200) mg/dl LDL Cholesterol, Calc mg/dl VLDL Cholesterol, Calc mg/dl HDL Cholesterol mg/dl Cholesterol/HDL Ratio HCG, Qual (Negative) COVID-19 Eval Order SARS-CoV-2 (PCR) (Negative) Influenza Type A (PCR) (Neg) Influenza Type B (PCR) (Neg) RSV (RT-PCR) (Neg) Medications Administered Current Inpatient Medications Acetaminophen (Acetaminophen 325 Mg Tab) 650 mg PO Q4H PRN PRN Reason: Pain or Fever Stop: 10/29/20 00:56 Aspirin (Aspirin 81 Mg Ectab) 81 mg PO DAILY [facility] Stop: 10/29/20 08:59 Metoprolol Succinate (Metoprolol Succ 25mg Ext Rel Tab) 25 mg PO DAILY [facility] Stop: 10/29/20 08:59 Miscellaneous (Remove Nicoderm Patch) 1 ea N/A DAILY@0859 [facility] Stop: 10/29/20 08:58 Nicotine (Nicotine 7 Mg/24 Hr Tdsy) 7 mg TD QAM [facility] Stop: 10/29/20 08:59 Nitroglycerin (Nitroglycerin Sl 0.4 Mg/Tab Tab) 0.4 mg SL UD PRN PRN Reason: Chest Pain Stop: 10/29/20 00:56 Ondansetron HCl (Ondansetron Inj 2 Mg/Ml 2 Ml Vial) 4 mg IV Q6H PRN PRN Reason: Nausea Stop: 10/29/20 00:56 Paroxetine HCl (Paroxetine Hcl Controlled Rel 12.5 Mg Tabcr) 37.5 mg PO DAILY [facility] Stop: 10/29/20 08:59 Polyethylene Glycol (Polyethylene (Miralax) 17 Gm Pack) 17 gm PO DAILY PRN PRN Reason: Constipation Stop: 10/29/20 00:56
[2020-09-29] MEDS ORDERED: ASPIRIN 81 MG ECTAB PO SCH (09:00)
[2020-09-29] MEDS ORDERED: NICOTINE 7 MG/24 HR TDSY TD SCH (09:00)
[2020-09-29] MEDS ORDERED: METOPROLOL SUCC 25MG EXT REL TAB PO SCH (09:00)
[2020-09-29] MEDS ORDERED: PARoxetine HCl CONTROLLED REL 12.5 MG TABCR PO SCH (09:00)
--- NOTE | 2020-09-29 10:45 | Cardiology Consultation ---
Date of Consultation September 29, 2020 Assessment & Plan (1) Retrosternal chest pain: Patient is a 49-year-old female with history of intermittent chest pain and paroxysmal supraventricular tachycardia by past cardiac evaluations. Assessments have included coronary angiography without obstruction in July 2019. Symptoms currently atypical for angina Patient with prior poor tolerance of medical therapies. No indications for stress testing given stable enzymes EKG in past false positive testing. Recommendations. Ambulate, if stable discharge today Reduce metoprolol succinate to 12.5 mg/day, add low-dose amlodipine to 2.5 mg daily Would retrial lipid reduction with rosuvastatin 5 mg 3 days/week and likely add ezetimibe to her regimen in future. Patient would warrant therapy with PCSK9 if fails low-dose therapy Strongly urged tobacco cessation which is contributing to current complaints Arrange outpatient cardiology follow-up 2 to 4-week (2) Coronary artery disease, non-occlusive: (3) Cigarette smoker: (4) Paroxysmal supraventricular tachycardia: (5) Hyperlipidemia: History of Present Illness Reason for Consultation: Atypical chest pain Requesting Physician: Dr. Briggs Attending Physician: Damon Briggs MD History of Present Illness Patient is a 49-year-old female with history as in past evaluations include findings of 1. Paroxysmal supraventricular tachycardia 2. Atypical chest pain with prior diagnostic coronary angiography July 2019 without obstructive disease after false positive stress testing 3. Chronic tobacco use 4. Hyperlipidemia with poor lipid-lowering therapy tolerance Patient is referred for admission from primary care physician's office yesterday having presented with symptoms just not feeling well mild confusion chest pressure and nausea. No fevers chills or unexplained infections. Occasional dizziness and poor cold tolerance. No bleeding difficulties. No cough or shortness wheeze or hemoptysis. Appetite and weight have been stable. Notes prior attempts at lipid-lowering therapies made her nauseated Notes recent change in exercise capacity. No syncope or near syncope. Cardiac enzymes and EKGs without ischemic changes or pattern of injury. Telemetry reveals only sinus bradycardia. Currently without complaint Allergies Allergy/AdvReac Type Severity Reaction Status Date / Time Penicillins Allergy Unknown Unknown Verified 09/28/20 19:46 prednisone AdvReac Unknown Sleepiness Verified 09/28/20 19:46 Home Medications Medication Instructions Recorded Confirmed Type paroxetine HCl 37.5 mg PO DAILY 07/25/19 09/28/20 History aspirin 81 mg PO DAILY #30 tab 07/27/19 09/28/20 Rx metoprolol succinate 25 mg PO DAILY 09/28/20 09/28/20 History Patient History Medical History (Updated 09/29/20 @ 10:50 by Mark Javed MD) Anxiety Arrhythmia 13 beat run wide-complex tachycardia 07/26/19 Cervical radiculitis Coronary artery disease, non-occlusive per cardiac cath [facility] 07/27/19 Hyperlipidemia Surgical History No pertinent past surgical history Social History Smoking Status: Current every day smoker Second Hand Exposure: Yes; Do You Dip or Chew Tobacco: No; Tobacco Cessation Education Requested by Patient: No Hx Alcohol Use: No Hx Substance Use: No Preferred Language: Lithuanian Communication Ability: Effective Salvage Engineer Required: No Beliefs That Will Affect Care: None Current Living Situation: Alone Other Information That Helps Us Care for You: No Feels Safe at Home: Yes Safety Concerns: Feels Safe At This Time Assistive Devices: Glasses Review of Systems Review of Systems: All systems reviewed & are unremarkable except as noted in HPI & below Results & Data ([facility]) Vital Signs (Past 12 Hours) Vital Signs Temp Pulse Pulse Resp BP BP Pulse Ox 09/29/20 09:23 09/29/20 09:17 52 L 09/29/20 07:36 36.6 C 56 L 18 114/71 95 09/29/20 03:33 36.4 C L 52 L 16 103/65 97 09/29/20 01:13 52 L 09/29/20 00:58 36.4 C L 53 L 16 126/80 97 Pulse Ox 09/29/20 09:23 95 09/29/20 09:17 09/29/20 07:36 09/29/20 03:33 09/29/20 01:13 09/29/20 00:58 Laboratory Results Current Medications Acetaminophen (Acetaminophen 325 Mg Tab) 650 mg PO Q4H PRN PRN Reason: Pain or Fever Stop: 10/29/20 00:56 Aspirin (Aspirin 81 Mg Ectab) 81 mg PO DAILY [facility] Stop: 10/29/20 08:59 Last Admin: 09/29/20 08:50 Dose: 81 mg Documented by: Metoprolol Succinate (Metoprolol Succ 25mg Ext Rel Tab) 25 mg PO DAILY [facility] Stop: 10/29/20 08:59 Last Admin: 09/29/20 08:50 Dose: Not Given Documented by: Miscellaneous (Remove Nicoderm Patch) 1 ea N/A DAILY@0859 [facility] Stop: 10/29/20 08:58 Last Admin: 09/29/20 08:55 Dose: Not Given Documented by: Nicotine (Nicotine 7 Mg/24 Hr Tdsy) 7 mg TD QAM [facility] Stop: 10/29/20 08:59 Last Admin: 09/29/20 08:54 Dose: 7 mg Documented by: Nitroglycerin (Nitroglycerin Sl 0.4 Mg/Tab Tab) 0.4 mg SL UD PRN PRN Reason: Chest Pain Stop: 10/29/20 00:56 Ondansetron HCl (Ondansetron Inj 2 Mg/Ml 2 Ml Vial) 4 mg IV Q6H PRN PRN Reason: Nausea Stop: 10/29/20 00:56 Paroxetine HCl (Paroxetine Hcl Controlled Rel 12.5 Mg Tabcr) 37.5 mg PO DAILY [facility] Stop: 10/29/20 08:59 Last Admin: 09/29/20 08:50 Dose: 37.5 mg Documented by: Polyethylene Glycol (Polyethylene (Miralax) 17 Gm Pack) 17 gm PO DAILY PRN PRN Reason: Constipation Stop: 10/29/20 00:56
--- NOTE | 2020-09-29 12:22 | Discharge Summary ---
Date of Service September 29, 2020 Admission HPI Per Admitting Provider This is a 49-year-old female with past medical history significant for hyperlipidemia, paroxysmal supraventricular tachycardia, depression, ongoing tobacco use disorder, who presents with chest pain. The patient lives alone. Since today morning, she had noticed chest pain in the middle of the chest and left arm numbness and she was at work and as the day progressed, it got worse, 7/10 in severity, which prompted her to come to the ER. Currently, the pain is subsiding, it is 3/10 in severity. Earlier in the day, she had nausea, but that is resolved now. Denies any sweating, no shortness of breath, no cough, no fever, no chills. Had headache earlier, that has resolved. No dizziness, no blurred visions, no earache, no runny nose, no sore throat, no cough, no abdominal pain. Normal bowel and bladder movements. Otherwise active. No swelling in the legs, no rash. Currently resting comfortably and hemodynamically stable. Admission Exam Per Admitting Provider GENERAL: The patient is of moderate build, not in acute distress. VITAL SIGNS: Temperature 36.8, pulse 53, respiratory rate 18, blood pressure 106/67, oxygen 96% on room air. HEENT: Pupils equal, round, and reactive to light. Oral mucosa moist. NECK: No JVD, no neck masses. CARDIOVASCULAR: S1, S2 heard, regular rate and rhythm, no murmur, no gallop. RESPIRATORY SYSTEM: Normal AP diameter. No accessory muscle use. No wheezing, no crackles. ABDOMEN: Soft, bowel sounds present, nontender. No distention. CENTRAL NERVOUS SYSTEM: Cranial nerves II-XII grossly intact, nonfocal. EXTREMITIES: No edema, no erythema. Principal Diagnosis Chest pain, atypical for angina Hyperlipidemia Tobacco use Discharge Exam GENERAL: The patient is of moderate build, not in acute distress. HEENT: NC/AT, equal, round, and reactive to light. Oral mucosa moist. NECK: No JVD, no neck masses. CARDIOVASCULAR: S1, S2 heard, regular rate and rhythm, no murmur, no gallop. RESPIRATORY SYSTEM: Normal AP diameter. No accessory muscle use. No wheezing, no crackles. ABDOMEN: Soft, bowel sounds present, nontender. No distention. NEURO: Alert and oriented, answering questions appropriately, speech fluent, no facial symmetry, moves extremities EXTREMITIES: No edema, no erythema. Discharge Data Allergies Allergy/AdvReac Type Severity Reaction Status Date / Time Penicillins Allergy Unknown Unknown Verified 09/28/20 19:46 prednisone AdvReac Unknown Sleepiness Verified 09/28/20 19:46 Consultations 09/29/20 08:00 Consult Cardiology Routine Hospital Course (1) Retrosternal chest pain: (2) Paroxysmal supraventricular tachycardia: This 49-year-old female presents with chest pain. 1. Chest pain: Rule out acute coronary syndrome. Initial workup is negative. The patient has risk factors of age, family history, and ongoing smoking. We will monitor in the [facility], serial enzymes, echo, keep n.p.o. until seen by cardiology. Further recommendations as per cardiology. Troponin x3 negative Assessments have included coronary angiography without obstruction in July 2019. Symptoms currently atypical for angina Patient with prior poor tolerance of medical therapies. No indications for stress testing given stable enzymes EKG in past false positive testing. Recs: Ambulate, if stable discharge today Reduce metoprolol succinate to 12.5 mg/day, add low-dose amlodipine to 2.5 mg daily Would retrial lipid reduction with rosuvastatin 5 mg 3 days/week and likely add ezetimibe to her regimen in future. Patient would warrant therapy with PCSK9 if fails low-dose therapy Strongly urged tobacco cessation which is contributing to current complaints Arrange outpatient cardiology follow-up 2 to 4-week Smoking cessation counseling provided. Patient is interested in smoking cessation. Currently on nicotine patch. Discussed calling 1 [employer] smoking cessation line. Patient interested in contacting them. 2. History of paroxysmal supraventricular tachycardia: On metoprolol. Will decrease dose, as mentioned above. 3. History of depression: On paroxetine. 4. History of hyperlipidemia, not on any medication: LDL 185 - will start rosuvastatin as above DVT prophylaxis: Sequential compression devices. Disposition: Observation in [facility]. Expect to discharge home Total Time Total Time Spent Total Time Spent (In Minutes): 35 Total Time Includes: Examination of the Patient, Discharge Planning, Medication Reconciliation and Communication With Other Providers Discharge Plan Discharge Items Patient Disposition: Home - Self-Care Reason For Visit: CHEST PAIN Discharge Diagnosis: Chest pain, atypical for angina Hyperlipidemia Tobacco use Activity: Per Instructions section Non-emergency contact: Primary Care Provider and Monorail Hooker Call non-emergency contact if: you have any medication questions and your symptoms worsen Follow-up/Referrals: Maggie Hawkins, DO [Primary Care Provider] - Diet: Heart Healthy Addtl Attending Provider Instructions: Follow up with primary care provider and you will also need to follow-up with cardiology. The appointment with cardiology will be scheduled for you. Take metoprolol 12.5 mg daily. Take amlodipine 2.5 mg daily. Take rosuvastatin 5 mg 3 times a week. Consider calling [facility] [employer] smoking cessation line. Strongly encourage tobacco use / smoking cessation. Pending Studies at Discharge: No Stand-Alone Forms: My [facility], Smoking Cessation Medications and DC Order Prescriptions: New nicotine 7 mg/24 hr Patch 24 Hour 7 mg transdermal QAM Qty: 7 RF: 0 metoprolol succinate 25 mg Tablet Extended Release 24 Hr 12.5 mg PO DAILY Qty: 10 RF: 0 amlodipine 2.5 mg tablet 2.5 mg PO DAILY Qty: 30 RF: 0 rosuvastatin 5 mg tablet 5 mg PO UD Qty: 20 RF: 0 Continued paroxetine HCl 37.5 mg tablet extended release 24 hr 37.5 mg PO DAILY RF: 0 aspirin 81 mg tablet,delayed release (DR/EC) 81 mg PO DAILY Qty: 30 RF: 0 Changed metoprolol succinate 25 mg tablet extended release 24 hr 12.5 mg PO DAILY Qty: 0 RF: 0 Discharge Orders: Discharge Order (Routine); Ordered 09/29/20 Ordered By: Damon Briggs Admission Data Admit Date/Time: 09/28/20 23:23 Attending Provider: Damon Briggs Admit Provider: Pilo Rodrigez Primary Care Provider: Maggie Hawkins Other Providers: Srini Jackson ; Ciro Gamble ; Mark Javed ; Tony Taylor ; Davie Neves ; Erasmo Louis ; Ml Bryant ; Briana Martinez ; Luci Carreon ; Conrad Hidalgo
--- NOTE | 2020-09-29 18:42 | Electrocardiogram Report ---
Test Reason : Blood Pressure : / mmHG Vent. Rate : 053 BPM Atrial Rate : 053 BPM P-R Int : 158 ms QRS Dur : 078 ms QT Int : 458 ms P-R-T Axes : 037 061 049 degrees QTc Int : 429 ms Sinus bradycardia Otherwise normal ECG When compared with ECG of 28-SEP-2020 15:54, (unconfirmed) No significant change was found Confirmed by Shayne Gerardo ([id number]) on 09/29/2020 6:42:24 PM Referred By: REFERRED SELF Confirmed By:Pritesh Gerardo
[2020-09-30] MEDS ORDERED: METOPROLOL SUCC 25MG EXT REL TAB PO SCH (09:00)
== END 2020-09-29 13:48 | disposition home or self-care (01) ==
LOC: 2N 15:40 → ED 15:40 → 2N 09-29 00:30

== ENCOUNTER 2025-01-17 15:39 | Inpatient (IN) ==
[2025-01-17 16:17] LABS: Hematocrit (blood only) 39.9 % (37.0-47.0); Hemoglobin 14.3 g/dl (12.0-16.0); Mean Corpuscular Hemoglobin 31.8 pg (25.0-34.0); Mean Corpuscular Volume 88.9 fL (80.0-100.0); Platelet Count 250 K/uL (130-400); RDW Standard Deviation 37.4 fL (36.4-46.3); Red Blood Count 4.49 M/uL (4.20-5.40); White Blood Count 7.76 K/ul (4.8-10.8)
--- NOTE | 2025-01-17 16:17 | Emergency Department Note ---
Impression & Plan Chest pain, Coronary artery disease, non-occlusive, Cigarette smoker, Palpitations ED Provider Note NAME: AGNIESZKA WALLACE AGE: 54 SEX: F : 1970 ARRIVES VIA: Walk-In INFORMANT: Patient ED PROVIDER(S): Maco Mathews DO CHIEF COMPLAINT: chest pain HPI: Patient is a 54-year-old female with a past medical history of smoker, hyperlipidemia, CAD and paroxysmal SVT who presents to the ER for midsternal chest pressure and heaviness. She has been getting this about 2 times a day for the past 2 weeks. She notes it is only with exertion and goes away with rest. Today she has gotten it off and on all day. She denies any arm or jaw pain with it. No belly pain. No dysuria, urgency, or frequency. No other exacerbating or remitting factors. She does feel very worn out and short of breath when this occurs. She also feels like her heart is racing but notes it only is in the 70s at the time. ADDITIONAL HISTORY OBTAINED: Per HPI Chronic Medical/Social Conditions Affecting Care: Per HPI PAST MEDICAL HISTORY:See Below PAST SURGICAL HISTORY:See Below FAMILY HISTORY:See Below SOCIAL HISTORY:See Below HOME MEDICATIONS:See Below ALLERGIES:See Below VITALS:See Below PHYSICAL EXAMINATION: GENERAL: Sitting up in bed, alert, well appearing, well nourished, no distress, non-toxic EYE EXAM: normal conjunctiva. OROPHARYNX: no exudate, no erythema, lips, buccal mucosa, and tongue normal and mucous membranes are moist NECK: supple, no nuchal rigidity, no adenopathy, non-tender LUNGS: Clear to auscultation. Normal chest wall mechanics HEART: no murmurs, S1 normal and S2 normal ABDOMEN: abdomen soft, non-tender, normo-active bowel sounds, no masses, no rebound or guarding. UPPER EXTREMITIES: upper extremities are grossly normal. Radial pulses are equal bilaterally LOWER EXTREMITIES: No pitting edema. Calves are equal bilaterally NEURO EXAM: Normal sensorium, cranial nerves II-XII grossly intact, normal speech, no gross weakness of arms, no gross weakness of legs. MEDICAL DECISION MAKING: Patient is a 54-year-old female who is a smoker with a past medical history of CAD and hyperlipidemia who presents to the ER for chest pain which has been off and on for the past 2 weeks. She notes has been much more constant today. Is only present with exertion. IVs were established blood work was obtained. Pain-free upon arrival. She was given aspirin. Labs showed no significant leukocytosis or anemia. BMP with mild hypokalemia at 3.2. LFTs bilirubin and troponin was negative. Lipase was normal. EKG with slightly worsening T wave inversions in the septal leads. Chest x-ray was clean. Cervical bilateral. Patient was updated and discussed with the hospitalist due to moderate risk for the heart score. Consults/Care Managements Discussions: Per [facility] Triage Nursing notes reviewed. Limited review of prior medical records performed Vital Signs: reviewed and remarkable for no significant abnormalities Differential diagnosis: Cardiac ischemia, aortic dissection, pulmonary embolism, pneumothorax, pneumonia, pericarditis, myocarditis, esophageal rupture, GERD, cholecystitis, pancreatitis, musculoskeletal, as well as other pathologies. ER treatment provided: See below Diagnostics interpreted by me include EKG and cardiac monitoring as listed below: -Cardiac Monitoring: An order was placed for continuous cardiac monitoring. The monitor shows a rate of 60 with sinus rhythm. -ECG: Sinus rhythm rate of 58 T wave inversions V1 through V3 Nonspecific ST wave changes in the lateral leads QTc 400 -Laboratory studies:Interpreted by me as stated above in MDM and shown below. Imaging studies: Xrays: As interpreted by me: Portable AP upright 1 view of the chest shows no focal Lutrate CTs show: none Procedures:none Critical Care: None Past Med/Surg History Problem List (Updated 01/17/25 @ 18:30 by Maco Mathews DO) Chest pain (Acute) Paroxysmal supraventricular tachycardia Retrosternal chest pain (Acute) Arrhythmia 13 beat run wide-complex tachycardia 07/26/19 Coronary artery disease, non-occlusive (Acute) per cardiac cath [facility] 07/27/19 Cigarette smoker (Acute) Palpitations (Acute) Hyperlipidemia (Chronic) Anxiety (Chronic) Medical History (Updated 01/17/25 @ 18:30 by Maco Mathews DO) Cervical radiculitis Surgical History No pertinent past surgical history Social History Smoking Status: Current every day smoker Tobacco Type: Cigarettes Second Hand Exposure: Yes; Do You Dip or Chew Tobacco: No; Hx Alcohol Use: No Hx Substance Use: No Preferred Language: Vincentian Communication Ability: Effective Driller'S Assistant Required: No Beliefs That Will Affect Care: None Current Living Situation: Alone Feels Safe at Home: Yes Assistive Devices: Glasses Allergies Allergies Allergy/AdvReac Type Severity Reaction Status Date / Time Penicillins Allergy Intermediate Hives Verified 10/25/23 15:50 Home Meds Home Medications Medication Instructions Recorded Confirmed amlodipine 2.5 mg tablet 2.5 mg PO QAM 12/17/20 01/17/25 aspirin 81 mg tablet,delayed 0 mg PO QAM 12/17/20 01/17/25 release metoprolol succinate 25 mg 12.5 mg PO QAM 12/17/20 01/17/25 tablet,extended release 24 hr rosuvastatin 5 mg tablet 0 mg PO PM 12/17/20 01/17/25 escitalopram oxalate 20 mg tablet 20 mg PO QA 06/29/23 01/17/25 ezetimibe 10 mg tablet 10 mg PO QA 06/29/23 01/17/25 tiotropium bromide 2.5 0 puff inhalation [facility] 06/29/23 01/17/25 mcg/actuation mist for inhalation (Spiriva Respimat) albuterol sulfate 90 mcg/actuation 2 puff inhalation DIRECTED PRN 10/25/23 01/17/25 aerosol inhaler sob budesonide-formoterol HFA 80 2 puff inhalation BID 10/25/23 01/17/25 mcg-4.5 mcg/actuation aerosol inhaler Results & Data (ED) Vital Signs Vital Signs - 24 hr 01/17/25 15:48 01/17/25 15:48 01/17/25 15:55 Temperature 36.8 C Temperature Source Oral Pulse Rate 57 L Pulse Rate [Apical] Respiratory Rate 12 Respiratory Effort / Characteristics Non-Labored Spontaneous Respiratory Depth Normal Respiratory Pattern Regular Blood Pressure 125/72 Blood Pressure [Right Arm] Blood Pressure Mean 89 Blood Pressure Mean [Right Arm] Blood Pressure Position Semi-fowlers Blood Pressure Position [Right Arm] Pulse Oximetry 97 95 Oxygen Delivery Method Room Air Room Air Room Air Sepsis Recent Fever Within 48 Hours No Sepsis New/Unexplained Change in Mental Status No Sepsis Action Taken by Nursing No Action Required 01/17/25 15:57 01/17/25 16:10 01/17/25 18:00 Temperature Temperature Source Pulse Rate 58 L 61 Pulse Rate [Apical] 54 L Respiratory Rate 13 18 Respiratory Effort / Characteristics Non-Labored Spontaneous Respiratory Depth Normal Respiratory Pattern Blood Pressure Blood Pressure [Right Arm] 133/81 Blood Pressure Mean Blood Pressure Mean [Right Arm] 98 Blood Pressure Position Blood Pressure Position [Right Arm] Semi-fowlers Pulse Oximetry 97 97 Oxygen Delivery Method Room Air Room Air Sepsis Recent Fever Within 48 Hours Sepsis New/Unexplained Change in Mental Status Sepsis Action Taken by Nursing Laboratory Data 01/17/25 15:53 01/17/25 15:53 Lab Results 01/17/25 Range/Units 15:53 WBC 7.76 (4.8-10.8) K/ul RBC 4.49 (4.20-5.40) M/uL Hgb 14.3 (12.0-16.0) g/dl Hct 39.9 (37.0-47.0) % MCV 88.9 (80.0-100.0) fL MCH 31.8 (25.0-34.0) pg MCHC 35.8 (32.0-36.0) g/dL RDW Std Deviation 37.4 (36.4-46.3) fL RDW Coeff of [place] 11.7 (11.5-14.5) % Plt Count 250 (130-400) K/uL MPV 9.3 L (9.4-12.4) fL Immature Gran % (Auto) 0.1 % Neut % (Auto) 37.2 % Lymph % (Auto) 55.5 % [place] % (Auto) 5.4 % Eos % (Auto) 1.0 % Baso % (Auto) 0.8 % Neut # (Auto) 2.88 (1.40-6.50) K/uL Lymph # (Auto) 4.31 H (1.20-3.40) K/uL [place] # (Auto) 0.42 (0.11-0.59) K/uL Eos # (Auto) 0.08 (0.00-0.50) K/uL Baso # (Auto) 0.06 (0.00-0.20) K/uL Immature Gran # (Auto) 0.01 (0.01-0.20) K/uL Sodium 138 (136-145) mmol/L Potassium 3.2 L (3.5-5.1) mmol/L Chloride 104 (98-107) mmol/L Carbon Dioxide 27 (21-32) mmol/L Anion Gap 7 (3-11) BUN 16 (6-23) mg/dl Creatinine 0.98 (0.6-1.2) mg/dl Est Cr Clr Drug Dosing 57.7 ml/min eGFR 67.74 BUN/Creatinine Ratio 16.3 (10-20) Glucose 139 H (70-99(Fasting)) mg/dl Calcium 9.2 (8.6-10.3) mg/dl Total Bilirubin 0.4 (0.2-1.0) mg/dl AST 23 (13-39) U/L ALT 23 (7-52) U/L Alkaline Phosphatase 71 (34-104) U/L Troponin I High Sens 4.2 (0-14) pg/ml Total Protein 6.7 (6.0-8.3) gm/dl Albumin 4.0 (3.4-5.0) gm/dl Globulin 2.7 (2.5-4.0) gm/dl Albumin/Globulin Ratio 1.5 (0.9-2) Lipase 37 (11-82) U/L Administered Medications Discontinued Medications Aspirin (Aspirin Chew 324 Mg) 324 mg PO NOW STA Stop: 01/17/25 16:21 Last Admin: 01/17/25 16:27 Dose: 324 mg Documented By: NEVIN Imaging Data Radiologist's Impression: Chest X-Ray 01/17/25 15:55 Chest radiograph, one view History: Chest pain Comparison: None Findings: Single AP view of the chest performed. No focal consolidation or pleural effusion. No pneumothorax. The cardiomediastinal silhouette is within normal limits. Normal pulmonary vascularity. No evidence for lymphadenopathy. No visualized bony or soft tissue abnormality. There are a few chronic appearing superior left lateral rib deformities. Impression: Normal chest radiograph Electronically signed by Shayne Vincent 01-17-2025 4:53 PM Discharge Plan Visit Data Chief Complaint: Chest Pain Stated Complaint: CHEST PAIN, SOB ED Provider: Maco Mathews Discharge Problem: Chest pain, Coronary artery disease, non-occlusive, Cigarette smoker, Palpitations Condition: Fair Forms Stand Alone Forms: My [facility] [employer] furniture Prescriptions Prescriptions: No Action amlodipine 2.5 mg tablet 2.5 mg PO QAM aspirin 81 mg tablet,delayed release (DR/EC) 0 mg PO QAM Patient Comments: 01/17- otc unable to verify metoprolol succinate 25 mg tablet extended release 24 hr 12.5 mg PO QAM rosuvastatin 5 mg tablet 0 mg PO PM Patient Comments: 01/17-last filled 09/12 90 day supply #90 escitalopram oxalate 20 mg tablet 20 mg PO QAM ezetimibe 10 mg tablet 10 mg PO QAM Spiriva Respimat 2.5 mcg/actuation mist 0 puff INHALATION QAM Patient Comments: 01/17- last filled 09/27 90 day supply albuterol sulfate 90 mcg/actuation HFA aerosol inhaler 2 puff INHALATION DIRECTED PRN (Reason: sob) budesonide-formoterol 80-4.5 mcg/actuation HFA aerosol inhaler 2 puff INHALATION BID Patient Comments: 01/17-Last filled 11/20/24 30 day supply Referrals Referrals: Mgagie Hawkins DO [Primary Care Provider] - Discharge Problem: Chest pain Qualifiers: Chest pain type: unspecified Qualified Code(s): R07.9 - Chest pain, unspecified
[2025-01-17] MEDS: ASPIRIN CHEW 324 MG PO STA (16:27)
[2025-01-17 16:36] LABS: Alanine Aminotransferase 23.0 U/L (7-52); Albumin Globulin Ratio 1.5 (0.9-2); Alkaline Phosphatase 71.0 U/L (34-104); Anion Gap 7.0 (3-11); Bilirubin,Total 0.4 mg/dl (0.2-1.0); Blood Urea Nitrogen 16.0 mg/dl (6-23); Calcium 9.2 mg/dl (8.6-10.3); Carbon Dioxide 27.0 mmol/L (21-32); Chloride 104.0 mmol/L (98-107); Creatinine Clr Calc Pharmacy 57.7 ml/min; Globulin 2.7 gm/dl (2.5-4.0); Glucose 139.0 mg/dl (70-99(Fasting)); Lipase 37.0 U/L (11-82); Potassium 3.2 mmol/L (3.5-5.1); Sodium 138.0 mmol/L (136-145); Total Protein 6.7 gm/dl (6.0-8.3)
--- NOTE | 2025-01-17 16:53 | XRay Report ---
Chest radiograph, one view History: Chest pain Comparison: None Findings: Single AP view of the chest performed. No focal consolidation or pleural effusion. No pneumothorax. The cardiomediastinal silhouette is within normal limits. Normal pulmonary vascularity. No evidence for lymphadenopathy. No visualized bony or soft tissue abnormality. There are a few chronic appearing superior left lateral rib deformities. Impression: Normal chest radiograph Electronically signed by Shayne Vincent 01-17-2025 4:53 PM
[2025-01-17 17:00] LABS: Immature Granulocytes # (auto) 0.01 K/uL (0.01-0.20); Immature Granulocytes % (auto) 0.1 %
--- NOTE | 2025-01-17 18:02 | History & Physical Report ---
Date of Service January 17, 2025 Assessment & Plan (1) Chest pain: (2) Paroxysmal supraventricular tachycardia: Plan Patient is a 54 Y O Female with PMH of Hypertension, Hyperlipidemia, CAD with cardiac cath on 2019, Asthma, Paroxysmal SVT presented with chest pressure/heaviness for almost 2 weeks. He is being admitted for evaluation of chest pressure. Will monitor on telemetry and do his stress echocardiogram. #Chest Pain/pressure -Symptoms on and off for 2 weeks. - Risk Factors include Hyperlipidemia and Hypertension -Vitals: She is Bradycardic - Troponin: 4.2 -Chest XR with no acute abnormalities -HEART score of 4-6 with risk of 12-16% Plan: -Admit patient on telemetry -Consider Stress echo tomorrow -TSH and Lipid Panel pending Chronic Conditions" Hypertension: Continue Amlodipine Hyperlipidemia: Continue ezetimibe and Rosuvastatin Paroxysmal SVT: Continue Metoprolol Asthma: Continue home inhalers DVT prophylaxis: Lovenox Dispo: Telemetry Code : Full History of Present Illness Chief Complaint: Chest pain/ pressure Primary Care Provider: Maggie Hawkins, Patient is a 54-year-old female with a past medical history of hyperlipidemia( on Ezetimibe and Rosuvastatin ), CAD(card cath 2 years ago(taking Aspirin daily) and paroxysmal SVT (Metoprolol), Asthma(on inhalers), Hypertension presents to the ER for midsternal chest pain, pressure and heaviness. She has been getting this about 2 times a day for the past 2 weeks. She notes it is only with exertion and goes away with rest. Today she has gotten it off and on all day. She denies any arm or jaw pain with it. She has radiation of pain to the back. No belly pain. No dysuria urgency or frequency. 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 Reports symptoms worsen with exhaustion. She does feel very worn out and short of breath when this occurs. She feels dizzy and feels like she is going to pass out. She is a smoker. Smokes around a pack per day. She has tried to quit so many times but patient is unable to quit. She doesn't consume alcohol She lives by herself. Troponin: 4.2 CBC looks normal CMP with her 3.2 EKG ....t wave inversion through V1 to V3 Chest xray: with no any focal pf consolidation or pneumonia Mild nonobstructive coronary artery disease with 10% proximal and mid LAD plaque. Catheter induced proximal RCA vasospasm. heart score 4 to 6 points with risk of 12-16% stress Echocardiogram admit telemetry npo overnight Code: Full code Allergies Allergy/AdvReac Type Severity Reaction Status Date / Time Penicillins Allergy Intermediate Hives Verified 10/25/23 15:50 Home Medications Medication Instructions Recorded Confirmed Type amlodipine 2.5 mg tablet 2.5 mg PO QAM 12/17/20 01/17/25 History aspirin 81 mg tablet,delayed 0 mg PO QAM 12/17/20 01/17/25 History release metoprolol succinate 25 mg 12.5 mg PO QAM 12/17/20 01/17/25 History tablet,extended release 24 hr rosuvastatin 5 mg tablet 0 mg PO PM 12/17/20 01/17/25 History escitalopram oxalate 20 mg tablet 20 mg PO QAM 06/29/23 01/17/25 History ezetimibe 10 mg tablet 10 mg PO QAM 06/29/23 01/17/25 History tiotropium bromide 2.5 0 puff inhalation QAM 06/29/23 01/17/25 History mcg/actuation mist for inhalation (Spiriva Respimat) albuterol sulfate 90 mcg/actuation 2 puff inhalation DIRECTED PRN 10/25/23 01/17/25 History aerosol inhaler sob budesonide-formoterol HFA 80 2 puff inhalation BID 10/25/23 01/17/25 History mcg-4.5 mcg/actuation aerosol inhaler Past Med/Surg History Problem List (Updated 01/17/25 @ 18:30 by Maco Mathews DO) Chest pain (Acute) Paroxysmal supraventricular tachycardia Retrosternal chest pain (Acute) Arrhythmia 13 beat run wide-complex tachycardia 07/26/19 Coronary artery disease, non-occlusive (Acute) per cardiac cath [facility] 07/27/19 Cigarette smoker (Acute) Palpitations (Acute) Hyperlipidemia (Chronic) Anxiety (Chronic) Medical History (Updated 01/17/25 @ 18:30 by Maco Mathews DO) Cervical radiculitis Surgical History No pertinent past surgical history Social History Smoking Status: Current every day smoker Tobacco Type: Cigarettes Second Hand Exposure: Yes; Do You Dip or Chew Tobacco: No; Hx Alcohol Use: No Hx Substance Use: No Preferred Language: Danish Communication Ability: Effective [place] Required: No Beliefs That Will Affect Care: None Current Living Situation: Alone Feels Safe at Home: Yes Assistive Devices: Glasses Review of Systems Review of Systems: As per HPI Physical Exam Physical Exam: Constitutional: Well appearing, No acute distress, PILCCOD: Negative HEENT: Atraumatic, Normocephalic, No conjunctival injection CVS: S1 S2 no murmur, Regular Rhythm, no LE edema Respiratory: BL equal air entry with NVBS. No rhonchi, wheezes, or crackles. No increased work of breathing GI: Soft, Nondistended, Nontender, Normal Bowel sounds + MSK: No gross deformities noted Skin: Warm, Dry, No rashes Neuro: Alert, Oriented to TPP, No Focal deficit Psych: Mood and Affect congruent, Cooperative on exam Results & Data Results & Data Vital Signs (Past 12 Hours) Vital Signs Temp Pulse Resp BP Pulse Ox O2 Del Method 01/17/25 16:10 61 01/17/25 15:57 58 L 13 97 Room Air 01/17/25 15:55 95 Room Air 01/17/25 15:48 Room Air 01/17/25 15:48 36.8 C 57 L 12 125/72 97 Room Air Supervising Physician Co-Signing Physician Notes I personally examined the patient and verified burch points of history and exam, discussed case, and agree with decision making and plan documented by Dr. Wilson. Patient is a 54-year-old female with past medical history of CAD, hyperlipidemia, COPD, paroxysmal SVT, sinus bradycardia, hypertension, and tobacco abuse presenting with 2 to 3 weeks of exertional chest pressure and pain with associated presyncopal symptoms and palpitations. Previous cardiac angiography without obstruction performed 07/2019. On exam patient appears comfortable, non diaphoretic, conjunctiva clear, mucosa moist, non-labored breathing, lungs clear to auscultation bilaterally, no rales/rhonchi/wheezing, bradycardic, no murmur appreciated, bowel sounds present and no tenderness in the abdomen, lower extremities without edema. Agree with admission ACS rule out, monitor patient on telemetry, stress echo in the morning. (1) Chest pain Chest pain type: unspecified Qualified Code(s): R07.9 - Chest pain, unspecified
[2025-01-17 19:56] LABS: Hemoglobin A1C 5.9 % (4.5-5.6)
[2025-01-17 20:19] LABS: Cholesterol 137.0 mg/dl (0-200); HDL Cholesterol 42.0 mg/dl; Triglycerides 138.0 mg/dl (0-150)
[2025-01-17 20:35] LABS: Thyroid Stimulating Hormone 1.568 uIu/ml (0.300-4.500)
[2025-01-17] MEDS ORDERED: ZOLPIDEM TARTRATE 5 MG TAB PO PRN (20:54)
[2025-01-17] MEDS ORDERED: ALUMINUM/MAGNESIUM SUSP 30 ML UDC PO PRN (20:54)
[2025-01-17] MEDS ORDERED: MAGNESIUM HYDROXIDE SUSP 30 ML UDC PO PRN (20:54)
[2025-01-17] MEDS ORDERED: ACETAMINOPHEN 325 MG TAB PO PRN (20:54)
[2025-01-17] MEDS ORDERED: POLYETHYLENE (MIRALAX) 17 GM PACK PO PRN (20:54)
[2025-01-17] MEDS ORDERED: MELATONIN 3 MG TAB PO PRN (20:54)
[2025-01-17] MEDS ORDERED: ALBUTEROL HFA 8 GM INHALER INH PRN (20:54)
[2025-01-17] MEDS ORDERED: NITROGLYCERIN SL 0.4 MG/TAB TAB SL PRN (20:54)
[2025-01-17] MEDS ORDERED: ONDANSETRON INJ 2 MG/ML 2 ML VIAL IV PRN (20:54)
[2025-01-17] MEDS: ROSUVASTATIN CALCIUM 20 MG TAB PO SCH (21:31)
--- NOTE | 2025-01-17 21:38 | History & Physical Report ---
Date of Service January 17, 2025 Assessment & Plan (1) Chest pain: Plan Patient is a 54 Y O Female with PMH of Hypertension, Hyperlipidemia, CAD with cardiac cath on 2019, Asthma, Paroxysmal SVT presented with chest pressure/heaviness for almost 2 weeks. EKG with T wave inversion in V1 to V3. Troponin WNL. She is being admitted for monitoring on Telemetry and further evaluation of her chest pain/ Pressure. #Chest Pain/pressure -Symptom of chest pain/pressure on and off for 2 weeks.Pain aggravated on exhaustion and relieved with rest. -Risk Factors include Hyperlipidemia and Hypertension -Vitals: She is Bradycardic - Troponin: 4.2 -Chest XR with no acute abnormalities -HEART score of 4-6 with risk of 12-16% -Wells score with low risk for PE -Admit patient on telemetry -Consider Stress echo tomorrow. NPO midnight -TSH ;Lipid Panel and HBa1c pending Chronic Conditions Hypertension: Continue Amlodipine Hyperlipidemia: Continue ezetimibe and Rosuvastatin Paroxysmal SVT: Continue Metoprolol Asthma: Continue home inhalers DVT prophylaxis: Lovenox Dispo: Telemetry Code : Full Admission and Anticipated Discharge Date Admission Date: January 17, 2025 History of Present Illness Chief Complaint: Chest pain/ pressure Primary Care Provider: Maggie Hawkins DO Patient is a 54-year-old female with a past medical history of hyperlipidemia( on Ezetimibe and Rosuvastatin ), CAD(card cath 2 years ago(taking Aspirin daily) and paroxysmal SVT (Metoprolol), Asthma(on inhalers), Hypertension presents to the ER for midsternal chest pain, pressure and heaviness. She has been getting this about 2 times a day for the past 2 weeks. She notes it is only with exertion and goes away with rest. Today she has gotten it off and on all day. She denies any arm or jaw pain with it. She has radiation of pain to the back. No belly pain. No dysuria urgency or frequency. 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 Reports symptoms worsen with exhaustion. She does feel very worn out and short of breath when this occurs. She feels dizzy and feels like she is going to pass out. She is a smoker. Smokes around a pack per day. She has tried to quit so many times but patient is unable to quit. She doesn't consume alcohol She lives by herself. She is a full code Allergies Allergy/AdvReac Type Severity Reaction Status Date / Time Penicillins Allergy Intermediate Hives Verified 10/25/23 15:50 Home Medications Medication Instructions Recorded Confirmed Type amlodipine 2.5 mg tablet 2.5 mg PO QAM 12/17/20 01/17/25 History aspirin 81 mg tablet,delayed 0 mg PO QAM 12/17/20 01/17/25 History release metoprolol succinate 25 mg 12.5 mg PO QAM 12/17/20 01/17/25 History tablet,extended release 24 hr rosuvastatin 5 mg tablet 0 mg PO PM 12/17/20 01/17/25 History escitalopram oxalate 20 mg tablet 20 mg PO QAM 06/29/23 01/17/25 History ezetimibe 10 mg tablet 10 mg PO QAM 06/29/23 01/17/25 History tiotropium bromide 2.5 0 puff inhalation QAM 06/29/23 01/17/25 History mcg/actuation mist for inhalation (Spiriva Respimat) albuterol sulfate 90 mcg/actuation 2 puff inhalation DIRECTED PRN 10/25/23 01/17/25 History aerosol inhaler sob budesonide-formoterol HFA 80 2 puff inhalation BID 10/25/23 01/17/25 History mcg-4.5 mcg/actuation aerosol inhaler Past Med/Surg History Problem List (Updated 01/17/25 @ 18:30 by Maco Mathews DO) Chest pain (Acute) Paroxysmal supraventricular tachycardia Retrosternal chest pain (Acute) Arrhythmia 13 beat run wide-complex tachycardia 07/26/19 Coronary artery disease, non-occlusive (Acute) per cardiac cath [facility] 07/27/19 Cigarette smoker (Acute) Palpitations (Acute) Hyperlipidemia (Chronic) Anxiety (Chronic) Medical History (Updated 01/17/25 @ 18:30 by Maco Mathews DO) Cervical radiculitis Surgical History No pertinent past surgical history Social History Smoking Status: Current every day smoker Tobacco Type: Cigarettes Cigarettes Per Day: 1 pack; Second Hand Exposure: Yes; Do You Dip or Chew Tobacco: No; Tobacco Cessation Education Requested by Patient: No Hx Alcohol Use: No Hx Substance Use: No Preferred Language: Puerto Rican Communication Ability: Effective [employer] 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 No rhonchi, wheezes, or crack les. No increased work of breathing GI: Soft, Nondiste nded, Nontender, N ormal Bowel sounds + MSK: No gross d eformities noted S kin: Warm, Dry, No rashes Neuro: Kajal rt, Oriented to TP P, No Focal defici t Psych: Mood and Affect congruent, Cooperative on exa m Results & Data Results & Data Vital Signs (Past 12 Hours) Vital Signs Temp Pulse Pulse Resp BP BP Pulse Ox 01/17/25 21:08 01/17/25 21:00 36.6 C 59 L 16 118/73 97 01/17/25 21:00 01/17/25 19:51 58 L 16 95 01/17/25 19:46 64 19 118/78 96 01/17/25 19:42 63 01/17/25 19:12 52 L 16 123/74 98 01/17/25 18:00 54 L 18 133/81 97 01/17/25 16:10 61 01/17/25 15:57 58 L 13 97 01/17/25 15:55 95 01/17/25 15:48 01/17/25 15:48 36.8 C 57 L 12 125/72 97 Pulse Ox O2 Del Method O2 Del Method 01/17/25 21:08 Room Air 01/17/25 21:00 Room Air 01/17/25 21:00 97 Room Air 01/17/25 19:51 01/17/25 19:46 01/17/25 19:42 01/17/25 19:12 Room Air 01/17/25 18:00 Room Air 01/17/25 16:10 01/17/25 15:57 Room Air 01/17/25 15:55 Room Air 01/17/25 15:48 Room Air 01/17/25 15:48 Room Air Code Status & VTE Plan VTE Prophylaxis Plan VTE Prophylaxis will be ordered: Yes Supervising Physician Co-Signing Physician Notes I personally examined the patient and verified burch points of history and exam, discussed case, and agree with decision making and plan documented by Dr. Wilson. Patient is a 54-year-old female with past medical history of CAD, hyperlipidemia, COPD, paroxysmal SVT, sinus bradycardia, hypertension, and tobacco abuse presenting with 2 to 3 weeks of exertional chest pressure and pain with associated presyncopal symptoms and palpitations. Previous cardiac angiography without obstruction performed 07/2019. On exam patient appears comfortable, non diaphoretic, conjunctiva clear, mucosa moist, non-labored breathing, lungs clear to auscultation bilaterally, no rales/rhonchi/wheezing, bradycardic, no murmur appreciated, bowel sounds present and no tenderness in the abdomen, lower extremities without edema. Agree with admission ACS rule out, monitor patient on telemetry, stress echo in the morning. Resident Activity Tracking Resident Involvement: Resident Care Provided Care Provided: Adult Hospital Medicine (1) Chest pain Chest pain type: unspecified Qualified Code(s): R07.9 - Chest pain, unspecified
[2025-01-17 22:01] LABS: Anion Gap 6.0 (3-11); Blood Urea Nitrogen 16.0 mg/dl (6-23); Calcium 9.0 mg/dl (8.6-10.3); Carbon Dioxide 28.0 mmol/L (21-32); Chloride 107.0 mmol/L (98-107); Creatinine Clr Calc Pharmacy 54.4 ml/min; Glucose 145.0 mg/dl (70-99(Fasting)); Potassium 3.6 mmol/L (3.5-5.1); Sodium 141.0 mmol/L (136-145)
[2025-01-18 06:06] LABS: Anion Gap 7.0 (3-11); Blood Urea Nitrogen 17.0 mg/dl (6-23); Calcium 8.8 mg/dl (8.6-10.3); Carbon Dioxide 26.0 mmol/L (21-32); Chloride 108.0 mmol/L (98-107); Creatinine Clr Calc Pharmacy 56.0 ml/min; Glucose 98.0 mg/dl (70-99(Fasting)); Potassium 3.9 mmol/L (3.5-5.1); Sodium 141.0 mmol/L (136-145)
[2025-01-18] MEDS: EZETIMIBE 10 MG TAB PO SCH (08:00)
[2025-01-18] MEDS: ASPIRIN 81 MG ECTAB PO SCH (08:00)
[2025-01-18] MEDS: ESCITALOPRAM OXALATE 20 MG TAB PO SCH (08:00)
[2025-01-18] MEDS: FLUTICASONE/VILANTEROL 100/25MCG 14 PUFFS/INHALER INH SCH (08:01)
[2025-01-18] MEDS: UMECLIDINIUM BROMIDE 62.5MCG/BLISTER 7 PUFFS/INHALER INH SCH (08:01)
[2025-01-18] MEDS: ENOXAPARIN INJ 40 MG/0.4 ML SYR SQ SCH (08:02)
[2025-01-18] MEDS: METOPROLOL SUCC 25MG EXT REL TAB PO SCH (09:38)
--- NOTE | 2025-01-18 11:14 | Hospitalist Progress Note ---
Date of Service January 18, 2025 Assessment & Plan (1) Chest pain: Plan Patient is a 54 Y O Female with PMH of Hypertension, Hyperlipidemia, CAD with cardiac cath on 2019, Asthma, Paroxysmal SVT presented with chest pressure/heaviness for almost 2 weeks. EKG with T wave inversion in V1 to V3. Troponin WNL. She is being admitted for monitoring on Telemetry and further evaluation of her chest pain/ Pressure. #Chest Pain/pressure -Symptom of chest pain/pressure on and off for 2 weeks.Pain aggravated on exhaustion and relieved with rest. -Risk Factors include Hyperlipidemia and Hypertension -Vitals: She is Bradycardic - Troponin: 4.2 -Chest XR with no acute abnormalities -HEART score of 4-6 with risk of 12-16% -Wells score with low risk for PE -Admit patient on telemetry -Consider Stress echo tomorrow. NPO midnight -TSH ;Lipid Panel and HBa1c pending Chronic Conditions Hypertension: Continue Amlodipine Hyperlipidemia: Continue ezetimibe and Rosuvastatin Paroxysmal SVT: Continue Metoprolol Asthma: Continue home inhalers DVT prophylaxis: Lovenox Dispo: Telemetry Code : Full Admission and Anticipated Discharge Date Admission Date: January 17, 2025 Subjective When I saw Carlee, she was just back from the stress echo Review of Systems Review of Systems: As per HPI Physical Exam Physical Exam: Constitutional: W ell appearing, No acute distress, PI LCCOD: Negative HE ENT: Atraumatic, N ormocephalic, No c onjunctival inject ion CVS: S1 S2 no murmur, Regular Rh ythm, no LE edema Respiratory: BL eq ual air entry with NVBS. No rhonchi, wheezes, or crack les. No increased work of breathing GI: Soft, Nondiste nded, Nontender, N ormal Bowel sounds + MSK: No gross d eformities noted S kin: Warm, Dry, No rashes Neuro: Kajal rt, Oriented to TP P, No Focal defici t Psych: Mood and Affect congruent, Cooperative on exa m Results & Data Results & Data Vital Signs (Past 12 Hours) Vital Signs Temp Pulse Pulse Resp BP Pulse Ox O2 Del Method 01/18/25 10:09 36.6 C 54 L 19 113/67 95 Room Air 01/18/25 07:45 Room Air 01/18/25 07:45 52 L 01/18/25 07:32 36.5 C 51 L 18 120/68 94 Room Air 01/18/25 05:42 63 01/18/25 04:12 36.6 C 50 L 16 101/56 L 97 Room Air 01/17/25 23:30 36.5 C 57 L 16 104/61 95 Room Air (1) Chest pain Chest pain type: unspecified Qualified Code(s): R07.9 - Chest pain, unspecified
[2025-01-18 15:11] VITALS: BP 119/69; RESP 18; TEMP 98.1; O2SAT 96
--- NOTE | 2025-01-18 16:34 | XCELERA ---
[id number]
--- NOTE | 2025-01-18 17:03 | Discharge Summary ---
Date of Service January 18, 2025 Admission HPI Per Admitting Provider Patient is a 54-year-old female with a past medical history of hyperlipidemia( on Ezetimibe and Rosuvastatin ), CAD(card cath 2 years ago(taking Aspirin daily) and paroxysmal SVT (Metoprolol), Asthma(on inhalers), Hypertension presents to the ER for midsternal chest pain, pressure and heaviness. She has been getting this about 2 times a day for the past 2 weeks. She notes it is only with exertion and goes away with rest. Today she has gotten it off and on all day. She denies any arm or jaw pain with it. She has radiation of pain to the back. No belly pain. No dysuria urgency or frequency. 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 She does feel very worn out and short of breath when this occurs. She feels dizzy and feels like she is going to pass out. She is a smoker. Smokes around a pack per day. She has tried to quit so many times but patient is unable to quit. She doesn't consume alcohol She lives by herself. She is a full code Admission Exam Per Admitting Provider Constitutional: Well appearing, No acute distress, PILCCOD: Negative HEENT: Atraumatic, Normocephalic, No conjunctival injection CVS: S1 S2 no murmur, Regular Rhythm, no LE edema Respiratory: BL equal air entry with NVBS. No rhonchi, wheezes, or crackles. No increased work of breathing GI: Soft, Nondistended, Nontender, Normal Bowel sounds + MSK: No gross deformities noted Skin: Warm, Dry, No rashes Neuro: Alert, Oriented to TPP, No Focal deficit Psych: Mood and Affect congruent, Cooperative on exam Principal Diagnosis Chest Pain/Pressure Discharge Exam Constitutional: Well appearing, No acute distress, PILCCOD: Negative HEENT: Atraumatic, Normocephalic, No conjunctival injection CVS: S1 S2 no murmur, Regular Rhythm, no LE edema Respiratory: BL equal air entry with NVBS. No rhonchi, wheezes, or crackles. No increased work of breathing GI: Soft, Nondistended, Nontender, Normal Bowel sounds + MSK: No gross deformities noted Skin: Warm, Dry, No rashes Neuro: Alert, Oriented to TPP, No Focal deficit Psych: Mood and Affect congruent, Cooperative on exam Discharge Data Allergies Allergy/AdvReac Type Severity Reaction Status Date / Time Penicillins Allergy Intermediate Hives Verified 10/25/23 15:50 Consultations 01/17/25 17:32 ED Decision to Admit Stat Hospital Course (1) Chest pain: Plan Patient is a 54 Y O Female with PMH of Hypertension, Hyperlipidemia, CAD with cardiac cath on 2019, Asthma, Paroxysmal SVT presented with chest pressure/heaviness for almost 2 weeks. EKG with T wave inversion in V1 to V3. Troponin WNL. She is being admitted for monitoring on Telemetry and further evaluation of her chest pain/ Pressure. #Chest Pain/pressure -Symptom of chest pain/pressure on and off for 2 weeks.Pain aggravated on exhaustion and relieved with rest. -Risk Factors include Hyperlipidemia and Hypertension -Vitals: She is Bradycardic - Troponin: 4.2 -Chest XR with no acute abnormalities -HEART score of 4-6 with risk of 12-16% -Wells score with low risk for PE -Nothing concerning on Telemetry -TSH ;Lipid Panel and HBa1c WNL -Stress Echocardiogram was Normal. Discharge today. -Follow up with PCP within next week. Set up with Cardiology for regular followup Chronic Conditions Hypertension: Continue Amlodipine Hyperlipidemia: Continue ezetimibe and Rosuvastatin Paroxysmal SVT: Continue Metoprolol Asthma: Continue home inhalers Dispo: Home Total Time Total Time Spent Total Time Spent (In Minutes): See attending attestation Discharge Plan Discharge Items Patient Disposition: Home - Self-Care Reason For Visit: CHEST PRESSURE Discharge Diagnosis: Chest pain Condition on Discharge: Fair Activity: Resume your previous activity Non-emergency contact: Primary Care Provider Call non-emergency contact if: you have any medication questions, your symptoms worsen and your pain is not controlled Follow-up/Referrals: Maggie Hawkins DO [Primary Care Provider] - Diet: Heart Healthy Addtl Attending Provider Instructions: You were admitted to the hospital for work up of chest pain. Fortunately, this work up did not show evidence of cardiac ischemia. To be thorough, we also completed a stress test, which was also normal. Essentially, we have ruled out the most concerning possible causes of chest pain. That said, it is not entirely clear what the underlying cause of your chest pain was. Please seek care if you experience recurrent chest pain, shortness of breath, or any other symptoms of concern. Additionally, please follow up with your primary care doctor within a week after discharge. You also need to schedule appointment with cardiology for regular followup. No changes were made to your medications, please continue to take them as prescribed. Pending Studies at Discharge: No Stand-Alone Forms: My [facility], Smoking Cessation Medications and DC Order Prescriptions: Continued amlodipine 2.5 mg tablet 2.5 mg PO QAM aspirin 81 mg tablet,delayed release (DR/EC) 0 mg PO QAM Patient Comments: 01/17- otc unable to verify metoprolol succinate 25 mg tablet extended release 24 hr 12.5 mg PO QAM rosuvastatin 5 mg tablet 0 mg PO PM Patient Comments: 01/17-last filled 09/12 90 day supply #90 escitalopram oxalate 20 mg tablet 20 mg PO QAM ezetimibe 10 mg tablet 10 mg PO QAM Spiriva Respimat 2.5 mcg/actuation mist 0 puff INHALATION QAM Patient Comments: 01/17- last filled 09/27 90 day supply albuterol sulfate 90 mcg/actuation HFA aerosol inhaler 2 puff INHALATION DIRECTED PRN (Reason: sob) budesonide-formoterol 80-4.5 mcg/actuation HFA aerosol inhaler 2 puff INHALATION BID Patient Comments: 01/17-Last filled 11/20/24 30 day supply Discharge Orders: Discharge Order (Routine); Ordered 01/18/25 Ordered By: Ariel Wilson Admission Data Admit Date/Time: 01/17/25 18:51 Attending Provider: Jonelle Boateng Admit Provider: Ariel Wilson Primary Care Provider: Maggie Hawkins Other Providers: Jonelle Boateng Supervising Physician Co-Signing Physician Notes I personally examined the patient and verified burch points of history and exam, discussed case, and agree with decision making and plan documented by Dr. Wilson. Patient is a 54-year-old female with past medical history of CAD, hyperlipidemia, COPD, paroxysmal SVT, sinus bradycardia, hypertension, and tobacco abuse presenting with 2 to 3 weeks of exertional chest pressure and pain with associated presyncopal symptoms and palpitations. Previous cardiac angiography without obstruction performed 07/2019. Patient presented with sinus bradycardia and nonspecific T wave abnormalities on ECG. Troponin negative. Telemetry showed sinus bradycardia in the 50s to 60s with no arrhythmic events. Stress echo with no significant ST or T wave changes during exercise or recovery, no evidence of inducible ischemia. 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 Total attending time 36 minutes Resident Activity Tracking Resident Involvement: Resident Care Provided Care Provided: Adult [facility]
[2025-01-18 17:32] VITALS: PULSE 56
--- NOTE | 2025-01-19 08:03 | Electrocardiogram Report ---
Test Reason : Blood Pressure : */* mmHG Vent. Rate : 58 BPM Atrial Rate : 58 BPM P-R Int : 152 ms QRS Dur : 74 ms QT Int : 408 ms P-R-T Axes : -24 -7 -14 degrees QTcB Int : 400 ms Sinus bradycardia possible Inferior infarct , age undetermined T wave abnormality, consider anterior ischemia Abnormal ECG When compared with ECG of 25-Oct-2023 14:50, Nonspecific T wave abnormality, worse in Inferior leads Confirmed by Shayne Gerardo ([id number]) on 01/18/2025 10:56:45 AM Referred By: REFERRED SELF Confirmed By: Shayne Gerardo
== END 2025-01-18 17:55 | disposition home or self-care (01) | DRG 313 ==
LOC: ED 15:39 → 2S 18:51